=== PATIENT | female | born 1950 | race Caucasian/White ===

== ENCOUNTER 2018-05-31 06:43 | Day surgery (SDC) | payer OTHER, SELFPAY ==
[2018-05-23 07:43] VITALS: BMI 35.6
[2018-05-31] VITALS (11 sets, daily range): BP systolic 126–155; BP diastolic 61–86; PULSE 79–106; RESP 10–16; TEMP 36.4–36.8; O2SAT 93–98; BMI 34.4
--- NOTE | 2018-05-31 | PATH_ITS ---
[facility] Accession Number: [id number] . 01 Material submitted: . HERNIA SAC . 02 Diagnosis: Hernia Sac, Excision: Fibroadipose tissue with reactive changes, consistent with hernia sac. Negative for malignancy. MRV/06/02/2018 . 02 Electronically signed: . Bryan Alvarez MD, PhD, Pathologist NPI- [id number] . 01 Gross description: . Received in formalin, labeled hernia sac, is a piece of membranous and fatty tissue (9.0 x 7.0 x 2.5 cm). Sales Executive tissue is submitted in cassette A1. ([id number]) /MRV . 02 Pathologist provided ICD-10: K40.90 . 02 CPT . 931204 Performed at: 01 [facility] [address] [facility], [place], [place] [id number] MD Bruce Antonio MD Phone: [phone] Performed at: 02 [facility] [address] [place], [place] [id number] MD Hossein Villela MD Phone: [phone]
[2018-05-31] MEDS: LACTATED RINGERS 1,000 ML 42 ML IV ×2 (07:24→09:52)
--- NOTE | 2018-05-31 09:06 | PM.HP.1 ---
History of Present Illness Date Patient Seen: 05/31/18 Time Patient Seen: 09:07 Chief complaint: [id number] INCISIONAL HERNIA REPAIR Narrative: Yoanna is a rolan 67-year-old lady who is well known to me. She has a ventral hernia that is troubling her. She says it has become larger over the past several months. I saw her in December for consultation but she wanted to wait till the summer to have it repaired so that school is out and she would miss work. She is a full-time elementary school professional. Patient History Medical History Abnormal colonoscopy (Acute) Anxiety (Acute) Arthritis (Acute) Asthma (Acute) Basal cell carcinoma (BCC) (Acute) Cataracts, bilateral (Acute) Colon enlargement (Acute) Constipation (Acute) Cough (Acute) Dupuytren's contracture (Acute) Dupuytren's contracture of both hands (Acute) Easy bruisability (Acute) Eczema craquele (Acute) Edema (Acute) Floaters (Acute) GERD (gastroesophageal reflux disease) (Acute) Glaucoma (Acute) HTN (hypertension) (Acute) History of hysterectomy (Acute) Hypothyroidism (Acute) Lipoma of back (Acute) Osteopenia (Acute) Pain (Acute) Recurrent sinusitis (Acute) Shingles (Acute) Sleep apnea (Acute) Urinary incontinence (Acute) Vagal nerve sensitivity (Acute) Surgical History Hx of bilateral oophorectomy (Acute) Hx of laparoscopy (Acute) Hx of repair of right rotator cuff (Acute) Hx of rhinoplasty (Acute) Hx of tonsillectomy (Acute) Status post finger joint fusion (Acute) Family & Social History Family History: Reviewed 05/31/18 by Allyssa Arthur MD Social History: household members none Tobacco & Substance use: Smoking Status Never smoker alcohol intake current Substance Use Type does not use Meds Home Medications Medication Instructions Recorded Confirmed Type fluticasone-vilanterol [Breo 1 puff INH QAM #0 06/18/17 05/31/18 History Ellipta] albuterol sulfate 1.25 mg INHALATION PRN PRN 05/23/18 05/31/18 History amlodipine 5 mg PO QPM 05/23/18 05/31/18 History bupropion HCl 300 mg PO QAM 05/23/18 05/31/18 History cetirizine [Zyrtec] 10 mg PO QAM 05/23/18 05/31/18 History ciclesonide [Omnaris] 1 spray INTRANASAL DAILY 05/23/18 05/31/18 History dexlansoprazole [Dexilant] 30 mg PO QAM 05/23/18 05/31/18 History glycopyrrolate 1 mg PO QAM 05/23/18 05/31/18 History ketotifen fumarate [Zaditor] 1 drp EYE-BOTH PRN PRN 05/23/18 05/31/18 History levothyroxine 75 mcg PO QAM 05/23/18 05/31/18 History losartan 50 mg PO DAILY 05/23/18 05/31/18 History lutein-zeaxanthin 1 tab PO DAILY 05/23/18 05/31/18 History montelukast 10 mg PO QPM 05/23/18 05/31/18 History polyethylene glycol 3350 1 tsp PO QPM 05/23/18 05/31/18 History travoprost [Travatan Z] 1 drp EYE-BOTH QPM 05/23/18 05/31/18 History Allergies Allergy/AdvReac Type Severity Reaction Status Date / Time iodine [IODINE] Allergy Severe HIVES Verified 05/31/18 07:07 Penicillins [PENICILLINS] Allergy Severe FAINT Verified 05/31/18 07:07 levofloxacin [LEVOFLOXACIN] Allergy Intermediate Pains and Verified 05/31/18 07:07 nausea morphine [MORPHINE] Allergy Intermediate unknown Verified 05/31/18 07:07 Sulfa (Sulfonamide Allergy Unknown Topical=dutton, Verified 05/31/18 07:07 Antibiotics) Pill=nausea [SULFA (SULFONAMIDE ANTIBIOTICS)] Review of Systems Review of Systems All systems reviewed & are unremarkable except as noted in HPI and below Exam Vital Signs (past 8 hours): - 05/31/18 07:27 Temperature 97.8 F Pulse Rate 92 H Respiratory Rate 16 Blood Pressure 130/78 H Pulse Oximetry 98 Oxygen Delivery Method Room Air Narrative Exam Narrative: Very pleasant and rotund lady in no distress. HEENT: Normocephalic and atraumatic, pupils equal round reactive to light and accommodation with anicteric sclera Lungs: Clear bilaterally Heart: Regular rate and rhythm Abdomen: Soft, palpable bulge at the umbilicus, active bowel sounds. The bulge is quite large, I cannot palpate the actual defect. Extremities: Warm and well perfused Assessment & Plan Plan: Assessment/Plan Narrative: Very pleasant 67-year-old lady with multiple medical problems who also has a significant sized ventral hernia. We discussed the risks and benefits of hernia repair the patient expressed desire to have the procedure.
--- NOTE | 2018-05-31 09:09 | P.HP_ITS ---
History of Present Illness Date Patient Seen: 05/31/18 Time Patient Seen: 09:07 Chief complaint: [id number] INCISIONAL HERNIA REPAIR Narrative: Yoanna is a rolan 67-year-old lady who is well known to me. She has a ventral hernia that is troubling her. She says it has become larger over the past several months. I saw her in December for consultation but she wanted to wait till the summer to have it repaired so that school is out and she would miss work. She is a full-time ged teacher. Patient History Medical History Abnormal colonoscopy (Acute) Anxiety (Acute) Arthritis (Acute) Asthma (Acute) Basal cell carcinoma (BCC) (Acute) Cataracts, bilateral (Acute) Colon enlargement (Acute) Constipation (Acute) Cough (Acute) Dupuytren's contracture (Acute) Dupuytren's contracture of both hands (Acute) Easy bruisability (Acute) Eczema craquele (Acute) Edema (Acute) Floaters (Acute) GERD (gastroesophageal reflux disease) (Acute) Glaucoma (Acute) HTN (hypertension) (Acute) History of hysterectomy (Acute) Hypothyroidism (Acute) Lipoma of back (Acute) Osteopenia (Acute) Pain (Acute) Recurrent sinusitis (Acute) Shingles (Acute) Sleep apnea (Acute) Urinary incontinence (Acute) Vagal nerve sensitivity (Acute) Surgical History Hx of bilateral oophorectomy (Acute) Hx of laparoscopy (Acute) Hx of repair of right rotator cuff (Acute) Hx of rhinoplasty (Acute) Hx of tonsillectomy (Acute) Status post finger joint fusion (Acute) Family & Social History Family History: Reviewed 05/31/18 by Allyssa Arthur MD Social History: household members none Tobacco & Substance use: Smoking Status Never smoker alcohol intake current Substance Use Type does not use Meds Home Medications Medication Instructions Recorded Confirmed Type fluticasone-vilanterol [Breo 1 puff INH QAM #0 06/18/17 05/31/18 History Ellipta] albuterol sulfate 1.25 mg INHALATION PRN PRN 05/23/18 05/31/18 History amlodipine 5 mg PO QPM 05/23/18 05/31/18 History bupropion HCl 300 mg PO QAM 05/23/18 05/31/18 History cetirizine [Zyrtec] 10 mg PO QAM 05/23/18 05/31/18 History ciclesonide [Omnaris] 1 spray INTRANASAL DAILY 05/23/18 05/31/18 History dexlansoprazole [Dexilant] 30 mg PO QAM 05/23/18 05/31/18 History glycopyrrolate 1 mg PO QAM 05/23/18 05/31/18 History ketotifen fumarate [Zaditor] 1 drp EYE-BOTH PRN PRN 05/23/18 05/31/18 History levothyroxine 75 mcg PO QAM 05/23/18 05/31/18 History losartan 50 mg PO DAILY 05/23/18 05/31/18 History lutein-zeaxanthin 1 tab PO DAILY 05/23/18 05/31/18 History montelukast 10 mg PO QPM 05/23/18 05/31/18 History polyethylene glycol 3350 1 tsp PO QPM 05/23/18 05/31/18 History travoprost [Travatan Z] 1 drp EYE-BOTH QPM 05/23/18 05/31/18 History Allergies Allergy/AdvReac Type Severity Reaction Status Date / Time iodine [IODINE] Allergy Severe HIVES Verified 05/31/18 07:07 Penicillins [PENICILLINS] Allergy Severe FAINT Verified 05/31/18 07:07 levofloxacin [LEVOFLOXACIN] Allergy Intermediate Pains and Verified 05/31/18 07: 07 nausea morphine [MORPHINE] Allergy Intermediate unknown Verified 05/31/18 07:07 Sulfa (Sulfonamide Allergy Unknown Topical=dutton, Verified 05/31/18 07:07 Antibiotics) Pill=nausea [SULFA (SULFONAMIDE ANTIBIOTICS)] Review of Systems Review of Systems All systems reviewed & are unremarkable except as noted in HPI and below Exam Vital Signs (past 8 hours): - 05/31/18 07:27 Temperature 97.8 F Pulse Rate 92 H Respiratory Rate 16 Blood Pressure 130/78 H Pulse Oximetry 98 Oxygen Delivery Method Room Air Narrative Exam Narrative: Very pleasant and rotund lady in no distress. HEENT: Normocephalic and atraumatic, pupils equal round reactive to light and accommodation with anicteric sclera Lungs: Clear bilaterally Heart: Regular rate and rhythm Abdomen: Soft, palpable bulge at the umbilicus, active bowel sounds. The bulge is quite large, I cannot palpate the actual defect. Extremities: Warm and well perfused Assessment & Plan Plan: Assessment/Plan Narrative: Very pleasant 67-year-old lady with multiple medical problems who also has a significant sized ventral hernia. We discussed the risks and benefits of hernia repair the patient expressed desire to have the procedure.
[2018-05-31] MEDS: CEFAZOLIN 2 GM/100 ML FROZ.PIGGY IV (09:15)
--- NOTE | 2018-05-31 09:29 | SUR.OPER ---
Supine on padded OR bed, head on pillow, arms secured on padded arm boards at <90 degrees abduction, legs uncrossed, safety belt at thigh, tape over blanket over lower legs.
[2018-05-31] MEDS: LIDOCAINE 1% W/EPI INJ 20 ML INJ (09:39)
[2018-05-31] MEDS: BUPIVACAINE 0.5% (PF) 30 ML VIAL INJ (09:39)
[2018-05-31] MEDS: SODIUM CHLORIDE IRRIG SOLUTION 250 ML, CEFAZOLIN VIAL 1 GM IRR (09:44)
--- NOTE | 2018-05-31 10:05 | PM.OP.1 ---
Operative Date/Time/Diagnoses Date of procedure: 05/31/18 Time of procedure: 10:05 Procedure & Clinicians Procedure: Ventral hernia repair with ProLite mesh Same procedure as scheduled: Yes Indications: Enlarging and painful ventral hernia Click Yes if Unassisted: Yes Anesthesia Type: General ([place]) and Local Operative Notes Findings: Eight by 3 cm oblong defect containing bowel and omentum Closure Type: primary Specimen(s): other (Hernia sac to pathology in formalin) Implants & Drains: 2 in x 4 in ProLite mesh implant Estimated Blood Loss (mL): 5 Procedure in detail: After obtaining informed consent, the patient is taken to the operating room and placed in the supine position on the operating table. Following successful induction of general endotracheal anesthesia, appropriate padding of all bony prominences, and placement of appropriate monitors, the abdomen is prepped and draped in the standard surgical fashion. A time-out was held per [facility] protocol. Following infiltration with local anesthetic create a field block, an incision was created directly over the palpable defect and carried down through the skin subcutaneous tissue. The hernia sac was palpated and defined using a combination of blunt and sharp dissection. Once the hernia sac itself was defined, the edges of the fascia were cleared and the sac itself was removed. This revealed an 8 x 3 cm fascial defect that was all along and configuration. We elected to close it primarily and place an onlay patch to buttress the closure. This was done by placing interrupted 1-0 Prolene sutures in the defect. The defect was then irrigated and checked for hemostasis. The onlay patch of Prolene mesh was then placed on top of the sutures and the fascia. This was sewn into place by weaving it within the existing sutures and sewing the lateral edges down in the running fashion with an additional 0 Prolene suture. The wound was checked for hemostasis and irrigated with Ancef containing solution. The remainder of the abdominal wall was then closed with Vicryl and Monocryl suture. All sponge, needle, and instrument counts were correct at the conclusion of the case. Patient tolerated the procedure very well. She was allowed to wake from anesthesia and taken to the postanesthesia care unit in good condition. Complications: none Condition: stable Disposition: PACU Plan for aftercare: 1. Discharge to home 2. Wear abdominal binder at all times except when showering. 3. Strict 5 lb lifting restriction x3 months. 4. Follow up with me in 2 weeks
[2018-05-31] MEDS: fentaNYL 100 MCG/2 ML INJ 50 MCG IV (10:20)
[2018-05-31] MEDS: ONDANSETRON 4 MG/2 ML INJ IV (10:28)
--- NOTE | 2018-05-31 10:50 | SUR.PHASEI ---
PT TOLERATING SIPS OF JUICE AND EATING CRACKER.
[2018-05-31] MEDS: OXYCODONE/ACETAMINOPHEN 5/325 TABLET 1 TAB PO (11:01)
--- NOTE | 2018-05-31 11:05 | SUR.PHASEI ---
TOLERATING JUICE AND CRACKERS, USING INCENTIVE SPIROMETER AND PRACTICING COUGH AND DEEP BREATHING, DENIES ANY NAUSEA .
== END 2018-05-31 11:35 | disposition home or self-care (01) ==
PROVIDERS: PCP Family Medicine; Visit Provider Surgery
PROC: (CPT 49560; principal; 2018-05-31 07:45)
DX: K43.9 Ventral hernia without obstruction or gangrene (principal); F41.9 Anxiety disorder, unspecified; J45.909 Unspecified asthma, uncomplicated; I10 Essential (primary) hypertension; E03.9 Hypothyroidism, unspecified; G47.33 Obstructive sleep apnea (adult) (pediatric)
CPT/HCPCS: 49560; 49568; C1781; J0690; J1100; J2405; J2704; J3010

== ENCOUNTER 2018-07-12 14:00 | Day surgery (SDC) | payer OTHER, SELFPAY ==
--- NOTE | 2018-07-12 07:47 | PM.PREOP ---
Pre-operative Note Interval Note Pre-op Check: Yes History & Physical Reviewed by Physician Changes: No
[2018-07-12] MEDS: PROPARACAINE 0.5% OPHTH SOL 2 DROPS EYE-OP (14:50)
[2018-07-12] MEDS: CATARACT EYE COMPOUND (10 DROPS/SYRINGE) 3 DROPS EYE-OP (14:59)
[2018-07-12 15:03] VITALS: BP 135/89; PULSE 90; RESP 16; TEMP 36.6; O2SAT 96; BMI 34.2
[2018-07-12] MEDS: LACTATED RINGERS 1,000 ML 42 ML IV (16:14)
[2018-07-12] MEDS: CARBACHOL 1.5 ML VIAL INJ (16:46)
[2018-07-12] MEDS: BALANCED SALT IRRIG SOLN NO.2 15 ML IRRIG.SOLN IRR (16:46)
[2018-07-12] MEDS: CHONDROIDTIN/SOD HYALURONATE 1.05 ML SYRINGE INTRAOCULA (16:47)
[2018-07-12] MEDS: HYALURONATE SODIUM 10 MG/ML SYRINGE INJ (16:50)
[2018-07-12] MEDS: MOXIFLOXACIN OPHTH DROPS 3 ML BOTTLE 2 DROPS INJ (16:50)
[2018-07-12] MEDS: PHENYLEPHRINE/LIDOCAINE 3ML VIAL (OR) EYE-OP (16:51)
[2018-07-12] MEDS: TRIAMCINOLONE 50 MG/5 ML VIAL INJ (16:52)
[2018-07-12] MEDS: BALANCED SALT IRRIG SOLN NO.2 500 ML, EPINEPHrine 1 MG IRR (16:54)
[2018-07-12] MEDS: TETRACAINE 0.5% OPHTH DROPS 15 ML 2 DROPS EYE-RIGHT (17:01)
[2018-07-12 17:06] VITALS: BP 148/82; PULSE 94; RESP 20; TEMP 36.8; O2SAT 95
[2018-07-12 17:11] VITALS: BP 148/84; PULSE 94; RESP 15; O2SAT 97
[2018-07-12] MEDS: OFLOXACIN 0.3% OPHTH 5 ML 2 DROPS EYE-RIGHT (17:13)
[2018-07-12] MEDS: NEOMYCIN/POLY/DEX OPHTH OINT 1 APPLIC EYE-RIGHT (17:14)
--- NOTE | 2018-07-12 17:15 | P.OP_ITS ---
Operative Date/Time/Diagnoses Date of procedure: 07/12/18 Time of procedure: 15:10 Procedure & Clinicians Procedure: Date of service: July 12, 2000 Preoperative diagnoses: 1. Right nuclear sclerotic and posterior subcapsular possible posterior polar 2. Sleep apnea 3.Anxiety Postoperative diagnoses: 1. Cataract removed with phacoemulsification and posterior chamber intraocular lens. Procedure: Phacoemulsification with posterior chamber intraocular lens implant Surgeon: Bettie Bonner MD Complications: None Specimen: None Implant: ZCBOO+14.5 Blood loss: None Anesthesia: Retrobulbar with monitored standby Anesthesiologist: Kody Dick M.D. Description of procedure: Patient is a female year old with decreased vision due to cataract which is affecting activities of daily living. She wants surgery to improve vision. She has a long axial length and anxiety. General anesthesia is chosen for safety She was taken to the operating room and given IV sedation. A laryngeal mask airway was placed. Topical tetracaine drops were placed. She was prepped using Betadine solution, and draped in the usual sterile fashion. Temporal approach was made, a 1 mm side-port incision was made at the 7:30 position. Phenylephrine 1.5% mixed with 1% xylocaine 0.2 cc was placed into the anterior chamber. Viscoat followed by Tl was then placed. A 2.6 mm clear incision with a 2.6 mm blade was placed at the 170 degree meridian. A 360 degree capsulorrhexis style capsulotomy was then performed with a cystitome needle on a Healon. Hydrodelineation and hydrodissection were performed. The phacoemulsification unit is introduced, and sculpting notice used to groove the central lens. It is then removed in chopping mode. Epi nucleus is removed with epinuclear mode and irrigation aspiration was used to remove the peripheral cortex. The posterior capsule is peripherally polished. Possible posterior polar plaque was not removed. The intraocular lens is selected, inspected, power confirmed with a myopic target, and placed in the posterior chamber. The pupil was constricted. The wound was stromally hydrated and tested for leaks, there was none and left sutureless. Vigamox 0.1 cc was placed into the anterior chamber. Kenalog 0.2 cc was placed in the superior subconjunctival space. A drop of antibiotic and was placed and the eye was patched and shielded. The patient was stable and returned to the recovery room in excellent condition. Dictated by: Bettie Bonner MD Copy to: [facility] Same procedure as scheduled: Yes
[2018-07-12 17:30] VITALS: BP 169/81; PULSE 78; RESP 18; TEMP 36.4; O2SAT 95
== END 2018-07-12 17:45 | disposition home or self-care (01) ==
LOC: OR 14:02
PROVIDERS: PCP Family Medicine; Visit Provider Ophthalmology
DX: H25.11 Age-related nuclear cataract, right eye (principal); F41.9 Anxiety disorder, unspecified; J45.909 Unspecified asthma, uncomplicated; I10 Essential (primary) hypertension; G47.33 Obstructive sleep apnea (adult) (pediatric)
CPT/HCPCS: J0171; J1100; J2405; J2704; J3010; J3301

== ENCOUNTER 2018-07-19 09:18 | Day surgery (SDC) | payer OTHER, SELFPAY ==
--- NOTE | 2018-07-19 07:52 | PM.PREOP ---
Pre-operative Note Interval Note Pre-op Check: Yes History & Physical Reviewed by Physician Changes: Yes
[2018-07-19] MEDS: PROPARACAINE 0.5% OPHTH SOL 2 DROPS EYE-OP (10:30)
[2018-07-19 10:38] VITALS: BP 132/78; PULSE 79; RESP 16; TEMP 36.8; O2SAT 99; BMI 34.3
[2018-07-19] MEDS: CATARACT EYE COMPOUND (10 DROPS/SYRINGE) 3 DROPS EYE-OP (10:52)
[2018-07-19] MEDS: LACTATED RINGERS 1,000 ML 42 ML IV (11:18)
[2018-07-19] MEDS: CARBACHOL 1.5 ML VIAL INJ (11:56)
[2018-07-19] MEDS: BALANCED SALT IRRIG SOLN NO.2 15 ML IRRIG.SOLN IRR (11:56)
[2018-07-19] MEDS: CHONDROIDTIN/SOD HYALURONATE 1.05 ML SYRINGE INTRAOCULA (11:56)
[2018-07-19] MEDS: MOXIFLOXACIN OPHTH DROPS 3 ML BOTTLE 2 DROPS INJ (11:57)
[2018-07-19] MEDS: NEOMYCIN/POLY/DEX OPHTH OINT 1 APPLIC EYE-LEFT (11:57)
[2018-07-19] MEDS: HYALURONATE SODIUM 10 MG/ML SYRINGE INJ (11:57)
[2018-07-19] MEDS: PHENYLEPHRINE/LIDOCAINE VIAL (OR) 0.2 ML EYE-OP (11:58)
[2018-07-19] MEDS: TETRACAINE 0.5% OPHTH DROPS 15 ML 2 DROPS EYE-LEFT (11:58)
[2018-07-19] MEDS: TRIAMCINOLONE 50 MG/5 ML VIAL INJ (11:58)
[2018-07-19] MEDS: BALANCED SALT IRRIG SOLN NO.2 500 ML, EPINEPHrine 1 MG IRR (11:59)
[2018-07-19] MEDS: OFLOXACIN 0.3% OPHTH 5 ML 2 DROPS EYE-LEFT (12:02)
[2018-07-19] MEDS: TRYPAN BLUE 0.5 ML SYRINGE INJ (12:15)
[2018-07-19 12:27] VITALS: BP 123/71; PULSE 86; RESP 20; TEMP 36.1; O2SAT 93
[2018-07-19 12:30] VITALS: BP 120/74; PULSE 89; RESP 19; TEMP 36.1; O2SAT 99
[2018-07-19 12:35] VITALS: BP 127/86; PULSE 89; RESP 22; TEMP 36.2; O2SAT 99
[2018-07-19 12:40] VITALS: BP 117/70; PULSE 79; RESP 16; TEMP 36.1; O2SAT 99
[2018-07-19 13:00] VITALS: BP 115/68; PULSE 71; RESP 16; TEMP 36.2; O2SAT 98
--- NOTE | 2018-07-19 14:12 | PM.OP.1 ---
Operative Date/Time/Diagnoses Date of procedure: 07/19/18 Time of procedure: 11:12 Procedure & Clinicians Procedure: Date of service: July 19, 2018 Preoperative diagnoses: 1. Nuclear sclerotic with posterior subcapsular changes, advanced Cataract. Need for capsular dye. 2. Iris transillumination with glaucoma. 3. Long axial length 4. Anxiety 5. Restless leg syndrome. Postoperative diagnoses: 1. Cataract complex removed with posterior capsular dye general anesthesia and posterior chamber intraocular lens. Procedure: Phacoemulsification with posterior chamber intraocular lens implant Surgeon: Bettie Bonner MD Complications:None. Specimen: None Implant: ZCBOO +16.0 Blood loss: None Anesthesia: General with topical and intracameral anesthesia.Anesthesiologist: Kody Hurt M.D. Description of procedure: Patient is a 67 year old female with decreased vision due to cataract which is affecting activities of daily living. She wants surgery to improve vision. 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 She has significant nuclear sclerotic cataract and poor red reflex requiring capsular dye for increased safety. She has anxiety and elects a general over topical anesthesia. She also has restless leg type syndrome. She was taken to the operating room and given IV sedation. A laryngeal mask airway is placed. The eye is manually massaged for 30 sec, prepped using Betadine solution, and draped in the usual sterile fashion. Temporal approach was made, a 1 mm side-port incision was made at the 12 oclock meridian. Phenylephrine 1.5% mixed with 1% xylocaine 0.2 cc was placed into the anterior chamber. An air bubble is placed and then the Visudyne capsular dye is placed over the anterior capsule to improve visibility due to poor red reflex. Viscoat followed by Tl was then placed. A 2.6 mm clear incision with a 2.6 mm blade was placed at the 3 oclock meridian. A 360 degree capsulorrhexis style capsulotomy was then performed with a cystitome needle on a Healon. Hydrodelineation and hydrodissection were performed. The phacoemulsification unit is introduced, and sculpting notice used to groove the central lens. It is then removed in chopping mode. Epi nucleus is removed with epinuclear mode and irrigation aspiration was used to remove the peripheral cortex. The posterior capsule is polished. The intraocular lens is selected, inspected, power confirmed, and placed in the posterior chamber. The pupil was constricted. The wound was stromally hydrated and tested for leaks, there was none and was left sutureless. Vigamox 0.1 cc was placed into the anterior chamber. Kenalog 0.2 cc was placed in the superior subconjunctival space. A drop of antibiotic and was placed and the eye was patched and shielded. The patient was stable and returned to the recovery room in excellent condition. Dictated by: Bettie Bonner MD Copy to: [facility]
== END 2018-07-19 13:10 | disposition home or self-care (01) ==
LOC: OR 09:20
PROVIDERS: PCP Family Medicine; Visit Provider Ophthalmology
DX: H25.12 Age-related nuclear cataract, left eye (principal); F41.9 Anxiety disorder, unspecified; J45.909 Unspecified asthma, uncomplicated; I10 Essential (primary) hypertension; H40.89 Other specified glaucoma
CPT/HCPCS: J0171; J1100; J2405; J2704; J3010; J3301

== ENCOUNTER 2018-09-20 06:42 | Day surgery (SDC) | payer OTHER, SELFPAY ==
[2018-09-13 14:45] VITALS: BMI 35.6
--- NOTE | 2018-09-20 | PATH_ITS ---
[facility] Accession Number: [id number] . 01 Material submitted: . PART A: SUPRACLAVICULAR PART B: NECK LIPOMA . 01 Clinical history: . A-B: LIPOMA . 02 Diagnosis: A. Tissue From Supraclavicular Area: Lipoma, negative for atypia. . B. Specimen Designated Lipoma From Neck: Lipoma, negative for atypia. MRV/09/22/2018 . 02 Electronically signed: . Yoel Mcdonough MD, Pathologist NPI- [id number] . 01 Gross description: . (A) Received in formalin, labeled supraclavicular lipoma, is a piece of bright yellow rubbery adipose tissue (4.7 x 2.7 x 1.0 cm) with a homogenous unremarkable cut surface. The tissue is inked black. Newspaper Managing Editor tissue is submitted in cassettes A1 and A2. (B) Received in formalin, labeled neck lipoma, are multiple pieces of montgomery-yellow rubbery adipose tissue (9.5 x 6.5 x 3.4 cm in aggregate) with homogenous unremarkable cut surfaces. The tissue is inked black. Newspaper Managing Editor tissue is submitted in cassettes B1-B3. ([id number]) /[facility] . 02 Pathologist provided ICD-10: D17.0 . 02 CPT . 446525, 030632 Specimen Comment: A duplicate report has been generated due to demographic updates. Performed at: 01 [facility] [address] [id number] MD Brcue Antonio MD Phone: [phone] Performed at: 02 [facility] [address] [place], [place] [id number] MD Hossein Villela MD Phone: [phone]
[2018-09-20] MEDS: LACTATED RINGERS 1,000 ML 42 ML IV (07:20)
[2018-09-20 07:21] VITALS: BP 131/82; PULSE 87; RESP 16; TEMP 36.8; O2SAT 96; BMI 35.6
[2018-09-20] MEDS: CLINDAMYCIN 900 MG/50 ML PIGGYBACK 50 MG IV (08:43)
--- NOTE | 2018-09-20 08:51 | P.HP_ITS ---
History of Present Illness Date Patient Seen: 09/20/18 Time Patient Seen: 08:48 Chief complaint: [id number] EXCISION OF RECURRENT & NEW LIPOMAS Narrative: Yoanna is a wonderful 67-year-old lady who is well known to me. She is here today to have 2 lipomas removed. One is in the right supraclavicular region and the other is a recurrent lipoma across her left shoulder and posterior neck. Her health is otherwise not changed since I last saw her. Patient History Medical History Abnormal colonoscopy (Acute) Anxiety (Acute) Arthritis (Acute) Asthma (Acute) Basal cell carcinoma (BCC) (Acute) Cataracts, bilateral (Acute) Colon enlargement (Acute) Constipation (Acute) Cough (Acute) Dupuytren's contracture (Acute) Dupuytren's contracture of both hands (Acute) Easy bruisability (Acute) Eczema craquele (Acute) Edema (Acute) Floaters (Acute) GERD (gastroesophageal reflux disease) (Acute) Glaucoma (Acute) HTN (hypertension) (Acute) History of bronchitis (Acute) History of hysterectomy (Acute) Hypothyroidism (Acute) Lipoma of back (Acute) Osteopenia (Acute) Pain (Acute) Recurrent sinusitis (Acute) Restless leg (Acute) Shingles (Acute) Sleep apnea (Acute) Urinary incontinence (Acute) Vagal nerve sensitivity (Acute) Surgical History Cataract extraction status of left eye (Acute) History of incisional hernia repair (Acute) Hx of bilateral oophorectomy (Acute) Hx of laparoscopy (Acute) Hx of repair of right rotator cuff (Acute) Hx of rhinoplasty (Acute) Hx of tonsillectomy (Acute) Status post finger joint fusion (Acute) Family & Social History Family History: Reviewed 09/20/18 by Allyssa Arthur MD Social History: household members none Tobacco & Substance use: Smoking Status Never smoker alcohol intake current Substance Use Type does not use Meds Home Medications Medication Instructions Recorded Confirmed Type fluticasone-vilanterol [Breo 1 puff INH QAM #0 06/18/17 09/20/18 History Ellipta] albuterol sulfate 1.25 mg INHALATION PRN PRN 05/23/18 09/13/18 History amlodipine 5 mg PO QPM 05/23/18 09/20/18 History bupropion HCl 300 mg PO QAM 05/23/18 09/20/18 History cetirizine [Zyrtec] 10 mg PO BID 05/23/18 09/20/18 History ciclesonide [Omnaris] 1 spray INTRANASAL DAILY 05/23/18 09/20/18 History dexlansoprazole [Dexilant] 30 mg PO QAM 05/23/18 09/20/18 History glycopyrrolate 1 mg PO QAM 05/23/18 09/20/18 History ketotifen fumarate [Zaditor] 1 drp EYE-BOTH PRN PRN 05/23/18 09/13/18 History levothyroxine 75 mcg PO QAM 05/23/18 09/20/18 History losartan 50 mg PO DAILY 05/23/18 09/20/18 History lutein-zeaxanthin 1 tab PO DAILY 05/23/18 09/20/18 History montelukast 10 mg PO QPM 05/23/18 09/20/18 History polyethylene glycol 3350 1 tsp PO QPM 05/23/18 09/20/18 History travoprost [Travatan Z] 1 drp EYE-BOTH QPM 05/23/18 09/20/18 History Allergies Allergy/AdvReac Type Severity Reaction Status Date / Time iodine [IODINE] Allergy Severe HIVES Verified 09/13/18 14:52 Penicillins [PENICILLINS] Allergy Severe FAINT Verified 09/13/18 14:52 levofloxacin [LEVOFLOXACIN] Allergy Intermediate Pains and Verified 09/13/18 14: 52 nausea morphine [MORPHINE] Allergy Intermediate unknown Verified 09/13/18 14:52 Sulfa (Sulfonamide Allergy Unknown Topical=dutton, Verified 09/13/18 14:52 Antibiotics) Pill=nausea [SULFA (SULFONAMIDE ANTIBIOTICS)] Review of Systems Review of Systems All systems reviewed & are unremarkable except as noted in HPI and below Exam Vital Signs (past 8 hours): - 09/20/18 07:21 Temperature 98.3 F Pulse Rate 87 Respiratory Rate 16 Blood Pressure 131/82 Pulse Oximetry 96 Oxygen Delivery Method Room Air Narrative Exam Narrative: Healthy appearing lady in no distress HEENT: Normocephalic and atraumatic, pupils equal round reactive to light accommodation with anicteric sclerae Lungs: Clear auscultation bilaterally Heart: Regular rate and rhythm without murmur rub or gallop Chest: Soft 4 2 5 cm mobile mass in the right supraclavicular region. It is marked with a [place]. More elongated deeper mass over the left posterior neck and shoulder. There is a healed scar from her prior excision attempt. This 1 is somewhat deeper and more poorly defined. The area of palpation is about 20 cm in length but this may be distorted due to the thickness of the skin on the back. Abdomen: Soft, nontender, active bowel sounds Extremities: Warm well perfused Assessment & Plan Plan: Assessment/Plan Narrative: Ywtvi-wlvs-tala-old lady with a recurrent left posterior neck lipoma and a new right supraclavicular lipoma. We discussed the risks and benefits of excision of these lipomas the patient expressed a desire to have the procedure
--- NOTE | 2018-09-20 09:10 | SUR.OPER ---
Pt. slightly left and right lateral on alonzo bag (one for each lipoma), pillows, gel pads, gel donut used. secured with safety belt at hips and tape at lower legs.
[2018-09-20] MEDS: BUPIVACAINE 0.5% (PF) VIAL 30 ML INJ (09:27)
[2018-09-20] MEDS: LIDOCAINE 1% W/EPI INJ 20 ML INJ (09:28)
--- NOTE | 2018-09-20 09:53 | P.OP_ITS ---
Operative Date/Time/Diagnoses Date of procedure: 09/20/18 Time of procedure: 09:47 Pre-op diagnosis: Lipoma and recurrent lipoma Post-op diagnosis: same Procedure & Clinicians Procedure: Excision of right supraclavicular lipoma and re-excision of left posterior neck lipoma Same procedure as scheduled: Yes Indications: Recurrent lipoma causing significant neck and back discomfort Surgeon: Allyssa Arthur Anesthesia Type: General (Dr. Arora) Operative Notes Findings: 1. Discrete 5 cm lipoma in the right supraclavicular fossa 2. Multi lobulated lipoma with discrete areas laterally and more scarred in lobulated areas medially. The entire spans of lipoma is greater than 20 cm with a diameter of approximately 5 cm. It is removed in large and small sections. It is notably attached to the trapezius muscle. Closure Type: primary Specimen(s): other (Lipoma to pathology in formalin) Estimated Blood Loss (mL): 10 Procedure in detail: After obtaining informed consent, the patient brought to the operating room placed in the supine position on the operating table. Following successful induction of general endotracheal anesthesia, appropriate padding of all bony prominences, and placement of appropriate monitors, the right shoulder neck were prepped and draped in the standard surgical fashion. A time-out was held per RIOAP protocol. Following infiltration with local anesthetic to create a field block, an incision was created directly over the palpable lipoma in the supraclavicular fossa. This was carried down through the skin and subcutaneous to reveal a discrete lipomatous mass below. This was removed in a single piece and the vascular pedicle divided using cautery. The wound was checked for hemostasis, irrigated with saline, and closed in 2 layers. Exofen was applied to the skin. The patient was then turned on a alonzo bag to her right side being sure that all bony prominences were padded. There was an axillary roll beneath her right chest and pillows between her legs and around her entire body. A beanbag was used to hold her in place. The left posterior neck was then prepped and draped in the standard surgical fashion. Again, following infiltration with local anesthetic create a field block, an incision was recreated to include the pre- existing incision and extended somewhat laterally. Digital exploration revealed a discrete mass laterally but more lobulated and scarred individual masses medially. All of the individual pieces were carefully lifted and their vascular pedicles divided with cautery. Attempt was made to remove them in tact whenever possible. The wound was then irrigated with warm saline and closed in layers with Vicryl and Monocryl suture. All sponge, needle, and instrument counts were correct at the conclusion of the case. The patient was allowed to awake from anesthesia without difficulty and taken to the post anesthesia care unit in good condition. Complications: none Condition: stable Disposition: PACU Plan for aftercare: 1. Discharge to home 2. Follow up with me in 2 weeks
[2018-09-20 09:55] VITALS: BP 132/67; PULSE 91; RESP 20; TEMP 37.2; O2SAT 95
[2018-09-20 10:00] VITALS: BP 110/56; PULSE 79; RESP 16; O2SAT 95
[2018-09-20 10:05] VITALS: BP 119/63; PULSE 75; RESP 18; TEMP 37.2; O2SAT 95
[2018-09-20 10:17] VITALS: BP 115/65; PULSE 76; RESP 20; TEMP 37.3; O2SAT 95
--- NOTE | 2018-09-20 10:46 | SUR.PHASEII ---
1045: Pt discharged to [facility]. Julius Best will be here momentarily. All d/c instructions have been reviewed and Pt understands teaching. Volunteer aware that Yoanna has been discharged to the [facility]. Pt has met discharge criteria and left Phase II in stable condition.
== END 2018-09-20 10:45 | disposition home or self-care (01) ==
PROVIDERS: PCP Family Medicine; Visit Provider Surgery
PROC: (CPT 21933; principal; 2018-09-20 07:45)
DX: D17.0 Benign lipomatous neoplasm of skin and subcutaneous tissue of head, face and neck (principal); J45.909 Unspecified asthma, uncomplicated; F41.9 Anxiety disorder, unspecified; G47.33 Obstructive sleep apnea (adult) (pediatric)
CPT/HCPCS: 21933; 21552; J1100; J2250; J2405; J2704; J3010

== ENCOUNTER → 2019-06-01 13:01 | Outpatient (CLI) | payer OTHER, SELFPAY | PROVIDERS: PCP Family Medicine; Visit Provider Family Medicine | DX: M85.852 Other specified disorders of bone density and structure, left thigh (principal); Z78.0 Asymptomatic menopausal state; E07.9 Disorder of thyroid, unspecified; E89.41 Symptomatic postprocedural ovarian failure; Z90.722 Acquired absence of ovaries, bilateral | CPT/HCPCS: 77080 ==

== ENCOUNTER → 2019-06-22 09:15 | Outpatient (CLI) | payer OTHER, SELFPAY ==
--- NOTE | 2019-06-22 | DI.US.S_ITS ---
LIMITED ULTRASOUND OF RIGHT BREAST: 06/22/2019 CLINICAL: Palpable right breast lump. Comparison is made to exams dated: 06/22/2019 mammogram, 06/14/2016 mammogram - [facility], 07/15/2015 mammogram - [facility], 05/06/2013 mammogram - [facility], and 06/22/2019 ultrasound - [facility]. Color flow ultrasound of the right breast 1-2 o'clock region was performed. Engle scale images of the real-time examination were reviewed. Corresponding to the palpable abnormality is a benign 1.6 cm x 1 cm x 2.3 cm oval mass with a circumscribed margin in the right breast at 1:30 o'clock posterior depth 13 cm from the nipple. This oval mass is hyperechoic with a well-defined boundary and no posterior acoustic shadowing or enhancement. This was not seen on the prior mammogram. Color flow imaging demonstrates that there is no increase in vascularity. IMPRESSION: BENIGN There is no sonographic evidence of malignancy. Corresponding to the palpable abnormality in the superior medial right breast is a 2.3 cm benign lipoma. A 1 year screening mammogram is recommended. This exam was interpreted at Station ID: [id number]. Electronically Signed By: Parish Wade M.D. slc/:06/27/2019 11:19:59 letter sent: Normal Exam Ultrasound BI-RADS: 2 Benign
--- NOTE | 2019-06-22 | DI.MG.S_ITS ---
BILATERAL DIGITAL DIAGNOSTIC MAMMOGRAM 3D/2D: 06/22/2019 CLINICAL: Bilateral breast lump. Comparison is made to exams dated: 06/14/2016 mammogram - [facility], 07/15/2015 mammogram - [facility], and 05/06/2013 mammogram - [facility]. The tissue of both breasts is predominantly fatty. No significant masses, calcifications, or other findings are seen in either breast. No abnormality demonstrated in the region of palpable abnormalities in the far lateral left breast or superior medial right breast. IMPRESSION: INCOMPLETE: NEEDS ADDITIONAL IMAGING EVALUATION No significant masses, calcifications, or other findings are seen in either breast. No abnormality demonstrated in the region of palpable abnormalities in the far lateral left breast or superior medial right breast. Bilateral targeted US is recommended and will immediately follow. This exam was interpreted at Station ID: [id number]. NOTE: For mammograms, a report in lay terms will be sent to the patient. Approximately 15% of breast malignancies will not be visualized mammographically. In the management of a palpable breast mass, a negative mammogram must not discourage biopsy of a clinically suspicious lesion. Electronically Signed By: Parish Wade M.D. slc/:06/27/2019 11:13:33 ACR BI-RADS Category 0: Incomplete [id number]
--- NOTE | 2019-06-22 | DI.US.S_ITS ---
LIMITED ULTRASOUND OF LEFT BREAST: 06/22/2019 CLINICAL: Palpable left breast lump. Comparison is made to exams dated: 06/22/2019 mammogram and 06/14/2016 mammogram - [facility]. Color flow ultrasound of the left breast 9 o'clock region was performed. Engle scale images of the real-time examination were reviewed. There is a benign 1.4 cm x 2.1 cm x 0.7 cm oval lipoma with a circumscribed margin in the left breast at 9 o'clock posterior depth 13 cm from the nipple. This oval lipoma is hyperechoic with a well-defined boundary and no posterior acoustic shadowing or enhancement. This was not seen on the prior mammogram. Color flow imaging demonstrates that there is no increase in vascularity. IMPRESSION: BENIGN There is no sonographic evidence of malignancy. The palpable abnormality reported by patient corresponds to 1.4 cm x 2.1 cm x 0.7 cm oval mass in the left breast most likely is a lipoma and is benign. Recommend continued clinical survellance. A 1 year screening mammogram is recommended. This exam was interpreted at Station ID: [id number]. Electronically Signed By: Parish Wade M.D. slc/:06/22/2019 11:58:12 letter sent: Clinical Evaluation Ultrasound BI-RADS: 2 Benign
== END ==
PROVIDERS: PCP Family Medicine; Visit Provider Family Medicine
DX: R92.8 Other abnormal and inconclusive findings on diagnostic imaging of breast (principal); N63.12 Unspecified lump in the right breast, upper inner quadrant; D24.2 Benign neoplasm of left breast
CPT/HCPCS: 76642; 77066; G0279

== ENCOUNTER → 2022-09-24 10:26 | Outpatient (CLI) | payer MEDICARE, SELFPAY ==
--- NOTE | 2022-09-24 | DI.CT.S_ITS ---
PROCEDURE: CT PEL WO CON INDICATIONS: SACROILIAC JOINT DISORDER OF ARTICULAR CARTILAGE TECHNIQUE: Noncontrast 3 mm axial sections acquired through the bony pelvis, with coronal and sagittal reformatting. COMPARISON: None. FINDINGS: Image quality: Excellent. Bones: Osteoarthritic changes are seen in bilateral sacroiliac joints with joint space narrowing, subchondral sclerosis and subcortical radiolucencies concerning for moderate bilateral sacroiliitis . No definite cortical disruption to suggest bony erosion. No ankylosis is noted. Bilateral hip joint and symphysis pubis osteoarthritic changes are seen. No acute fracture or dislocation. No evidence of avascular necrosis of femoral heads. Degenerative disc disease in visualized lower lumbar spine is seen. Soft tissues: No gross presacral soft tissue abnormality is seen. No pelvic free fluid or free air. No abnormal bowel wall thickening. Bladder wall thickness is normal. No pelvic or inguinal lymphadenopathy. IMPRESSION: 1. Moderate bilateral sacroiliitis as described above. No definite bony erosion. No ankylosis. 2. Osteoarthritic changes throughout rest of the bony pelvis. No evidence of avascular necrosis of femoral head. Degenerative disc disease in lower lumbar spine. 3. No gross presacral soft tissue abnormalities. No pelvic free fluid or free air. Dictated by: Vamsi Crawford M.D. on 09/24/2022 at 11:27 Approved by: Vamsi Crawford M.D. on 09/24/2022 at 12:19
== END ==
PROVIDERS: PCP Family Medicine; Referring Provider Family Medicine; Visit Provider Family Medicine
DX: M51.36 Other intervertebral disc degeneration, lumbar region (principal); M46.1 Sacroiliitis, not elsewhere classified; M24.10 Other articular cartilage disorders, unspecified site
CPT/HCPCS: 72192

== ENCOUNTER → 2023-02-15 11:35 | Outpatient (CLI) | payer MEDICARE, SELFPAY ==
--- NOTE | 2023-02-15 | DI.MG.S_ITS ---
BILATERAL DIGITAL SCREENING MAMMOGRAM 3D/2D WITH CAD: 02/15/2023 CLINICAL: Routine screening. Family history of breast cancer. Comparison is made to exams dated: 06/22/2019 mammogram, 06/14/2016 mammogram - [facility], and 07/15/2015 mammogram - [facility]. There are scattered areas of fibroglandular density in both breasts (category b / 25%-50% glandular tissue). Current study was also evaluated with a Computer Aided Detection (CAD) system. There are benign calcifications in both breasts. No significant masses, calcifications, or other findings are seen in either breast. There has been no significant interval change. IMPRESSION: BENIGN There is no mammographic evidence of malignancy. A 1 year screening mammogram is recommended. Based on the Tyrer Cuzick model (a risk assessment model) the patient's lifetime risk is 2.8% and her 10 year risk is 2.5%. According to the ACR, ACS, and NCCN guidelines, an annual breast MRI exam along with mammogram is recommended if the patient's lifetime risk is 20% or greater. This exam was interpreted at Station ID: [id number]. NOTE: For mammograms, a report in lay terms will be sent to the patient. Approximately 15% of breast malignancies will not be visualized mammographically. In the management of a palpable breast mass, a negative mammogram must not discourage biopsy of a clinically suspicious lesion. Electronically Signed By: Parish hernandez/jayde:02/15/2023 13:17:09 letter sent: Normal Exam ACR BI-RADS Category 2: Benign Finding(s) 3342F
== END ==
PROVIDERS: PCP Family Medicine; Referring Provider Family Medicine; Visit Provider Family Medicine
DX: Z12.31 Encounter for screening mammogram for malignant neoplasm of breast (principal); Z80.3 Family history of malignant neoplasm of breast
CPT/HCPCS: 77063; 77067

== ENCOUNTER → 2023-03-17 13:21 | Outpatient (CLI) | payer MEDICARE, SELFPAY ==
--- NOTE | 2023-03-17 13:25 | DI.CT.S_ITS ---
PROCEDURE: CT PEL WO CON INDICATIONS: SI JOINT DYSFUNCTION TECHNIQUE: Noncontrast 3 mm axial sections acquired through the bony pelvis, with coronal and sagittal reformatting. COMPARISON: [facility], CT, CT PEL WO CON, 09/24/2022, 10:30. FINDINGS: Image quality: Excellent. Bones: Patient is status post interval surgical fusion of right sacroiliac joint with surgical hardware in place. No evidence of hardware loosening or failure. No acute pelvic fracture or dislocation. There is suggestion of partial bony union in right sacroiliac joint adjacent to the surgical hardware. Osteoarthritic changes are again seen in bilateral sacroiliac joints with joint space narrowing, subchondral sclerosis and subcortical cystic changes. No ankylosis is noted in left sacroiliac joint. No suspicious bony lesions. No evidence of avascular necrosis of femoral head. Soft tissues: There is no gross pelvic and hip muscle abnormality. No intramuscular hematoma or fluid collection. No abnormal soft tissue calcifications. No pelvic free fluid or free air is seen. Bowel wall thickness is normal. Bladder wall thickness is normal. No pelvic lymphadenopathy is seen. IMPRESSION: 1. Patient is status post interval surgical fusion of right sacroiliac joint. No evidence of hardware loosening or failure. 2. There is partial ankylosis of right sacroiliac joint at the level of surgical hardware. Osteoarthritic changes are seen in rest of the right sacroiliac joint. 3. Osteoarthritic changes noted in left sacroiliac joint. No evidence of ankylosis is seen. No pelvic fracture or dislocation. No suspicious bony lesions. 4. No gross pelvic soft tissue abnormalities. Dictated by: Vamsi Crawford M.D. on 03/17/2023 at 16:53 Approved by: Vamsi Crawford M.D. on 03/17/2023 at 16:57
== END ==
PROVIDERS: PCP Family Medicine; Referring Provider Neurological Surgery; Visit Provider Neurological Surgery
DX: M53.88 Other specified dorsopathies, sacral and sacrococcygeal region (principal); Z98.1 Arthrodesis status
CPT/HCPCS: 72192

== ENCOUNTER → 2023-11-12 11:05 | Outpatient (CLI) | payer MEDICARE, SELFPAY | PROVIDERS: PCP Family Medicine; Referring Provider Orthopaedic Surgery; Visit Provider Orthopaedic Surgery | DX: Z01.818 Encounter for other preprocedural examination (principal) | CPT/HCPCS: 93005 ==

== ENCOUNTER → 2023-11-12 11:40 | Outpatient (CLI) | payer MEDICARE, SELFPAY ==
--- NOTE | 2023-11-12 | DI.CT.S_ITS ---
PROCEDURE: CT LUMBAR SPINE WO CON INDICATIONS: Spondylolysis, lumbar region TECHNIQUE: Noncontrast 3 mm thick sections acquired from the T12 level to the sacrum. Sagittal and coronal reformats were constructed. For radiation dose reduction, the following was used: automated exposure control. COMPARISON: None. FINDINGS: Image quality: Excellent. Bones: Grade 1 anterolisthesis of L4 on L5 and L5 on S1 secondary to facet arthrosis. Significant facet arthrosis and facet hypertrophy at L4-5 and L5-S1. Moderate, multilevel degenerative disc disease; please see same day lumbar MRI for further discussion regarding specific disc herniation and spinal canal narrowing. Surgical fusion of the right sacroiliac joint. Soft tissues: No retroperitoneal masses or hematomas. Visualized aorta is normal in caliber. IMPRESSION: Grade 1 anterolisthesis of L4 on L5 and L5 on S1 secondary to facet arthrosis. Please see same day lumbar MRI for further discussion regarding specific disc herniation and spinal canal narrowing. Dictated by: Antonio Dillard M.D. on 11/12/2023 at 20:46 Approved by: Antonio Dillard M.D. on 11/12/2023 at 20:49
--- NOTE | 2023-11-12 | DI.MRI.S_ITS ---
PROCEDURE: MR LUMBAR SPINE WO CON INDICATIONS: Spondylolysis, lumbar region TECHNIQUE: Noncontrast sagittal T1 spin echo and T2 fast echo, sagittal STIR, and T2 fast spin echo through the lumbar spine. In cases with scoliosis, additional coronal T2 fast spin echo may be performed. COMPARISON: [facility], CT, CT PEL WO CON, 09/24/2022, 10:30. [facility], CT, CT LUMBAR SPINE WO CON, 11/12/2023, 12:04. FINDINGS: Image quality: Diagnostic Alignment and Curvature: Redemonstration of grade 1 anterolisthesis of L4 on L5 and L5 on S1. Minimal anterolisthesis of T11 on T12. Bone Marrow: Marrow is of normal overall signal. No acute vertebral body compression fractures. Susceptibility artifact from right sacroiliac joint fusion hardware. Stable T2 hyperintense, T1 hypointense focus within the right posterior L5 vertebral body. This is again noted immediately adjacent to a Schmorl's node involving the superior endplate of L5. Spinal Cord: Conus medullaris terminates at the L2 level. Visualized cord demonstrates normal signal and size. Paraspinous Soft Tissues: No paravertebral masses. T12-L1: Bilateral facet arthropathy. Minimal ligamentum flavum hypertrophy. Mild degenerative endplate changes. No significant neuroforaminal or spinal canal stenosis. L1-L2: Mild bilateral facet arthropathy. Ligamentum flavum hypertrophy. No significant neuroforaminal or spinal canal stenosis. L2-L3: Mild bilateral facet arthropathy. Moderate ligamentum flavum hypertrophy. Small symmetric disc bulge. No spinal canal stenosis. Mild bilateral neuroforaminal stenosis. L3-L4: Minimal loss of disc signal intensity. Bilateral facet arthropathy. Ligamentum flavum hypertrophy and mild epidural lipomatosis. Moderate symmetric disc bulge. Findings result in mild spinal canal stenosis with mild-moderate bilateral neuroforaminal stenosis. L4-L5: Grade 1 anterolisthesis of L4 on L5 measuring approximately 5 mm. Degenerative endplate changes. Minimal loss of disc signal intensity. Moderate-severe bilateral facet arthropathy. Moderate ligamentum flavum hypertrophy. Uncovering of the posterior L4-5 disc secondary to anterolisthesis. Combination of findings result in moderate spinal canal stenosis and moderate bilateral neuroforaminal stenosis. L5-S1: Degenerative endplate changes in disc space loss. Grade 1 anterolisthesis of L5 on S1 measuring approximately 5 mm. Minimal loss of disc signal intensity. There is T2 hyperintensity involving the right posterior L5-S1 disc likely representing a annular fibrosus fissure. Slightly eccentric to the right disc bulge and uncovering of the disc. Findings result in moderate right and mild left bilateral neuroforaminal stenosis. No significant spinal canal stenosis. IMPRESSION: 1. Lumbar spine without acute abnormalities. 2. Multilevel, multifactorial lumbar spondylosis as detailed above by vertebral body level. Findings are most pronounced from L3-4 through L5-S1 with the most severe level noted at L4-5. 3. Right posterior L5-S1 disc annular fibrosus fissure. Dictated by: Larry Simental M.D. on 11/15/2023 at 9:11 Approved by: Larry Simental M.D. on 11/15/2023 at 9:28
== END ==
PROVIDERS: PCP Family Medicine; Referring Provider Neurological Surgery; Visit Provider Neurological Surgery
DX: M47.817 Spondylosis without myelopathy or radiculopathy, lumbosacral region (principal); M47.816 Spondylosis without myelopathy or radiculopathy, lumbar region; M43.16 Spondylolisthesis, lumbar region; M43.17 Spondylolisthesis, lumbosacral region; Z01.818 Encounter for other preprocedural examination
CPT/HCPCS: 72131; 72148; 93005; 93010

== ENCOUNTER 2024-01-24 08:18 | Day surgery (SDC) | payer MEDICARE, SELFPAY ==
[2024-01-20 09:08] VITALS: BMI 35.2
[2024-01-24] VITALS (8 sets, daily range): BP systolic 133–159; BP diastolic 74–96; PULSE 89–100; RESP 12–20; TEMP 36.2–37.2; O2SAT 93–98; BMI 35.2
--- NOTE | 2024-01-24 06:00 | DI.RAD.S_ITS ---
PROCEDURE: XR KNEE LT 1TO2V INDICATIONS: TKA TECHNIQUE: 2 view(s) of the knee acquired. COMPARISON: None. FINDINGS: Bones: Patient is status post knee joint arthroplasty. Hardware components are in expected positions. Visualized bony structures are intact. Soft tissues: Overlying postoperative changes are noted. IMPRESSION: Expected post-operative appearance of a knee arthroplasty. Approved by: Teto Ramirez M.D. on 01/24/2024 at 21:22
[2024-01-24] MEDS: CELECOXIB 200 MG CAPSULE PO (09:20)
[2024-01-24] MEDS: LACTATED RINGERS 1,000 ML 42 ML IV ×2 (09:23→11:50)
[2024-01-24] MEDS: VANCOMYCIN 1,000 MG/200 ML PIGGYBACK 200 MG IV (10:00)
--- NOTE | 2024-01-24 10:03 | SUR.PREOP ---
glasses given to friend, Arianna
--- NOTE | 2024-01-24 10:47 | PM.HP.1 ---
History of Present Illness History of Present Illness Date Patient Seen: 01/24/24 Time Patient Seen: 10:48 Chief complaint: TKA Left *OPB* 01/23 Narrative: Yoanna notes constant severe left knee pain. She had a left total knee arthroplasty scheduled and had a previous H and P done but had a severe incapacitating flare of her low back pain and spondylolisthesis. She has had an epidural cortisone injection with improved her overall back pain but she still notes incapacitating left knee pain. She has a history of a right total knee arthroplasty which is working reasonably well. [facility] Medical History Eczema History of bronchitis Restless leg Vagal nerve sensitivity Osteopenia Glaucoma Colon enlargement Eczema craquele Easy bruisability Cataracts, bilateral Anxiety Shingles Floaters Abnormal colonoscopy Lipoma of back Basal cell carcinoma (BCC) Dupuytren's contracture of both hands Dupuytren's contracture Recurrent sinusitis Urinary incontinence Hypothyroidism GERD (gastroesophageal reflux disease) Constipation Pain Arthritis Cough Sleep apnea Edema HTN (hypertension) Asthma Surgical History Status post epidural steroid injection (01/04/24) History of right cataract extraction Status post laparoscopic-assisted sigmoidectomy History of YAG laser iridotomy of both eyes History of lumbar fusion (11/2022) History of total right knee replacement (04/2021) History of incisional hernia repair Cataract extraction status of left eye Status post finger joint fusion Hx of repair of right rotator cuff Hx of rhinoplasty Hx of bilateral oophorectomy History of hysterectomy Hx of laparoscopy Hx of tonsillectomy Social History household members: none Smoking Status: Never smoker alcohol intake: current Meds Home Medications and Allergies Home Medications Medication Instructions Recorded Confirmed Type albuterol sulfate 1.25 mg/3 mL 1.25 mg inhalation PRN PRN SOB 05/23/18 12/12/23 History solution for nebulization bupropion HCl 300 mg 24 hr tablet, 300 mg PO QAM 05/23/18 01/24/24 History extended release dexlansoprazole 30 mg 60 mg PO QAM 05/23/18 01/24/24 History capsule,biphase delayed release (Dexilant) glycopyrrolate 1 mg tablet 1 mg PO QAM 05/23/18 12/12/23 History levothyroxine 75 mcg capsule 75 mcg PO BEDTIME 05/23/18 12/12/23 History losartan 50 mg tablet 50 mg PO DAILY 05/23/18 01/24/24 History lutein 25 mg-zeaxanthin 5 mg 1 tab PO DAILY 05/23/18 12/12/23 History capsule montelukast 10 mg tablet 10 mg PO QPM 05/23/18 01/24/24 History polyethylene glycol 3350 17 1 tsp PO QPM PRN Constipation 05/23/18 12/12/23 History gram/dose oral powder acetaminophen 500 mg tablet 1,000 mg PO BID-TID 12/12/23 01/24/24 History aspirin 500 mg tablet 500 mg PO TID 12/12/23 01/24/24 History doxycycline hyclate 50 mg capsule 50 mg PO DAILY Adult acne 12/12/23 01/24/24 History fluticasone furoate 27.5 1 spray intranasal DAILY 12/12/23 01/24/24 History mcg/actuation nasal spray,suspension (Flonase Sensimist) gabapentin 100 mg capsule 100 mg PO BID 12/12/23 12/12/23 History hydrochlorothiazide 12.5 mg tablet 12.5 mg PO QAM 12/12/23 01/24/24 History latanoprost 0.005 % eye drops 1 drp EYE-BOTH BEDTIME 12/12/23 01/24/24 History loratadine 10 mg tablet 10 mg PO QD-BID 12/12/23 12/12/23 History potassium chloride 10 mEq 10 meq PO DAILY 12/12/23 12/12/23 History capsule,extended release spironolactone 50 mg tablet 50 mg PO QAM Adult acne 12/12/23 01/24/24 History fluticasone furoate 100 1 ea inhalation DAILY 01/24/24 01/24/24 History mcg-vilanterol 25 mcg/dose inhalation powder (Breo Ellipta) Allergies Allergy/AdvReac Type Severity Reaction Status Date / Time iodine [IODINE] Allergy Severe HIVES Verified 01/24/24 09:09 morphine [MORPHINE] Allergy Intermediate Hives Verified 01/24/24 09:09 ibuprofen AdvReac Severe Nightmare Verified 01/24/24 09:09 Penicillins [PENICILLINS] AdvReac Severe FAINT Verified 01/24/24 09:09 levofloxacin [LEVOFLOXACIN] AdvReac Intermediate Pains and Verified 01/24/24 09:09 nausea Sulfa (Sulfonamide AdvReac Unknown Topical=dutton, Verified 01/24/24 09:09 Antibiotics) Pill=nausea [SULFA (SULFONAMIDE ANTIBIOTICS)] Review of Systems Review of Systems Narrative: She has been doing reasonably well no recent cardiac or pulmonary issues persistent but somewhat improved low back pain, history of an SI joint fusion, no new specific weakness or radicular symptoms Exam Vital Signs (past 8 hours): - 01/24/24 09:36 Temperature 98.7 F Pulse Rate 100 H Respiratory Rate 20 Blood Pressure 133/81 Pulse Oximetry 98 Oxygen Delivery Method Room Air Oxygen Delivery Method Room Air Narrative Exam Narrative: HEENT is benign, she is alert she is oriented, her lungs are clear, cor regular rate and rhythm, abdomen is soft obese but benign. Examination of her left lower extremity shows valgus deformity of her knee she is tender to palpation along the lateral joint line knee range motion 0-125, stable at 0 45 and 90?, acceptable tracking of the patella, calf soft distally, skin intact, neurologically okay Objective Labs Labs: Her x-rays show severe left knee osteoarthritis kl score 4 with evidence of bony deformity, right total knee arthroplasty acceptable alignment no evidence of loosening, lumbar spine MRI shows a L3-4 and L4-5 spondylolisthesis as well as prior left SI joint fusion Assessment & Plan Assessment and plan (1) Localized osteoarthritis of left knee: Status: Acute (2) Spondylolisthesis, lumbar region: Status: Acute Plan I have recommended a left total knee arthroplasty. The procedure alternatives risks benefits and complications were discussed in detail. She has previously undergone workup and had a previous history and physical. We have stabilized her low back in addition to the extent that it is reasonable to go ahead and proceed with a left total knee arthroplasty. Options risks benefits and complications discussed in detail.
[2024-01-24] MEDS: CEFAZOLIN 2 GM/100 ML PREMIX 100 ML IV ×2 (11:08→18:05)
--- NOTE | 2024-01-24 11:08 | SUR.PREOP ---
Block start time [1055] . Monitoring initiated and maintained throughout procedure. Oxygen and medications given per anesthesiologist Patient remained stable throughout procedure, no adverse reactions noted. Block end time [1100.
[2024-01-24] MEDS: BUPIVACAINE LIPOSOME 266 MG/20 ML VIAL INJ (11:48)
[2024-01-24] MEDS: TRANEXAMIC ACID 1,000 MG VIAL 1000 MG INJ ×2 (11:48→13:34)
[2024-01-24] MEDS: BUPIVACAINE 0.25% (PF) 60 ML, EPINEPHrine 0.3 MG INJ (11:49)
--- NOTE | 2024-01-24 11:53 | SUR.OPER ---
Supine on padded OR bed. Pillow under head, arms secured on padded armboards <90 degree abduction. Safety belt across torso. Non-operative leg secured with tape over blanket over lower leg. Operative leg secured in [employer] BOOT. Foam padded brace at thigh of operative leg.
[2024-01-24] MEDS: hydrOXYzine 50 MG/ML INJ 25 MG IM (14:19)
[2024-01-24] MEDS: ONDANSETRON 4 MG/2 ML INJ IV (14:19)
[2024-01-24] MEDS: OXYCODONE IR 5 MG TABLET PO (14:20)
--- NOTE | 2024-01-24 14:32 | PM.OP.1 ---
Operative Date/Time/Diagnoses Date of procedure: 01/24/24 Time of procedure: 11:25 Pre-op diagnosis: Severe left knee OA Post-op diagnosis: same Procedure & Clinicians Procedure: Left total knee arthroplasty with Cori guidance Same procedure as scheduled: Yes Indications: The patient has had progressively worsening left knee pain with radiographic changes consistent with arthritis. Non-operative management has failed and the patient has requested total knee replacement. The risks, benefits and alternatives to surgery were discussed with the patient prior to proceeding. Risks discussed included, but were not limited to, failure to relieve pain, stiffness, infection, nerve damage, deep venous thrombosis, pulmonary embolism, stroke, coma, heart attack, permanent paralysis and , as well as the potential need for eventual revision of the prosthetic. Surgeon: Elizabeth King Demand Equipment Repairer: Reed Boyd Anesthesia Type: General and Peripheral nerve block Operative Notes Findings: Severe left knee OA, adequate bone, adequate stability Closure Type: primary Specimen(s): none sent Prosthetic devices, grafts, tissues, transplants, or devices: King and nephew desmondney BCS 2 size 5 femur, size 3 tibia, +11 poly, 35 x 7-1/2 mm patella Estimated Blood Loss (mL): 250 Tourniquet time (min): 105 Procedure in detail: The patient was seen in the pre-operative area, where the patient identified the left knee as the operative site and this was marked with my initials. The patient received pre-operative antibiotics, and was taken to the operating room and placed on the operative table in the supine position. After satisfactory anesthesia, a medical records director out was performed. The left leg was encircled with a tourniquet about the proximal thigh, and the leg was prepared from the toes to the tourniquet with ChloroPrep in the usual fashion and draped through sterile drapes. The leg was elevated and exsanguinated with Eschmark bandage and the tourniquet inflated to 285 mmHg pressure. We did have some issues with the tourniquet and put it up and down a couple of times and switch to a different tourniquet box. A PA was used during the procedure and was essential for intraoperative retraction and safe implantation of the components. The knee was approached through an approximately 18 cm incision centered over the patella and carried into the knee through a medial parapatellar arthrotomy. Portion of the medial and lateral meniscus was resected. Soft tissue was carefully mobilized around the patella the patella was measured with a caliper. Bone was resected from the patella and the patellar height was reconstituted with up an appropriate sized patellar component. A cover was then placed on the patella. A small amount of additional medial and lateral meniscus was resected. The knee was carefully exposed and osteophytes were removed in the PCL was released. Two pins were placed in the femur and the tibial guide with a guide for CORI navigation was placed. We then carefully mapped the femur and the tibia and did range of motion both stressed and unstressed. The distal femoral cut was made using robotic navigation. Finishing cuts were made on the femur and it was checked with navigation. There was no evidence of notching. The anterior, posterior and chamfer cuts were then made. The posterior osteophytes and soft tissues were then removed. The posterior capsule was injected with part of a mixture of 60 ml 0.25% Marcaine mixed with 20 ml Exparel for post operative pain control. The remainder of this mixture was injected into the capsule and subcutaneous tissues during cement curing. The tibia was prepared using navigation for the tibial cut. The guide was just a little off. We did work to adjusted correcting slope varus valgus and depth. A cut was made through the guide and it looked like we had a couple of degrees of extra slope. The rotation was assessed. The patient was placed in extension residual medial and lateral meniscus as well as any residual bone was carefully resected. [No] additional tibia was resected. Hemostasis was achieved especially posteriorly. Additional local was injected into the posterior capsule. The femoral component was trial was placed and the notch was finished. Trial tibial and femoral components were then placed and the knee placed through a range of motion. Range of motion was [0-130], with good stability throughout the range. The trials were then removed, and the tibia was finished. I carefully checked the tibia and there was adequate bone for tibial alignment. It was then carefully aligned and punched and drilled. The bone was prepared with pulsatile lavage, and dried with a sponge. Cement was applied and the final prosthetics placed. Excess cement was removed during and after cement curing. After confirming there was no extruded cement posteriorly, the final tibial insert was placed. The knee was copiously irrigated and the tourniquet deflated. Hemostasis was obtained with the Bovie cautery. The capsule was closed with interrupted Vicryl suture. The subcutaneous layer was closed with barbed sutures, and the skin with a running 3-0 V-Lock suture and Surgical glue. We added a few tony. A gagan dressing was applied and the patient was taken to recovery having tolerated the procedure well. Complications: none Post-operative Condition: stable Disposition: Acute Care Plan for aftercare: The patient will be maintained on a standard total knee replacement protocol with weight bearing as tolerated. The patient will receive aspirin and sequential compression devices for DVT prophylaxis. The patient will be discharged home when safe for the home environment.
[2024-01-24] MEDS: LACTATED RINGERS 1,000 ML 100 ML IV (15:47)
[2024-01-24] MEDS: HYDROMORPHONE 2 MG TABLET PO ×2 (16:38→20:37)
[2024-01-24] MEDS: ACETAMINOPHEN 325 MG TABLET 650 MG PO (16:39)
[2024-01-24] MEDS: diphenhydrAMINE 25 MG TABLET PO (18:05)
--- NOTE | 2024-01-24 19:36 | RT ---
pt states she took her meds this morning and doesn't need them this evening
[2024-01-24] MEDS: MONTELUKAST 10 MG TABLET PO (20:37)
[2024-01-24] MEDS: ASPIRIN EC 81 MG TABLET PO (20:37)
[2024-01-24] MEDS: DOCUSATE 100 MG CAPSULE PO (20:37)
[2024-01-24] MEDS: GABAPENTIN 100 MG CAPSULE PO (20:37)
[2024-01-25] MEDS: HYDROMORPHONE 2 MG TABLET PO ×3 (00:48→08:58)
[2024-01-25] MEDS: diphenhydrAMINE 25 MG TABLET PO (02:21)
[2024-01-25] MEDS: ACETAMINOPHEN 325 MG TABLET 650 MG PO (02:21)
[2024-01-25] MEDS: CEFAZOLIN 2 GM/100 ML PREMIX 100 ML IV (02:28)
[2024-01-25 04:44] LABS: Hematocrit 34.8 % (36-46); Hemoglobin 12.2 g/dL (12.0-16.0)
[2024-01-25] MEDS: LEVOTHYROXINE 75 MCG TABLET PO (06:28)
--- NOTE | 2024-01-25 08:07 | PM.DS.1 ---
History of Present Illness History of Present Illness Date Patient Seen: 01/25/24 Time Patient Seen: 07:45 Chief complaint: TKA Left *OPB* 01/23 Narrative: Procedure: Left total knee arthroplasty with Cori guidance Same procedure as scheduled: Yes Indications: The patient has had progressively worsening left knee pain with radiographic changes consistent with arthritis. Non-operative management has failed and the patient has requested total knee replacement. The risks, benefits and alternatives to surgery were discussed with the patient prior to proceeding. Risks discussed included, but were not limited to, failure to relieve pain, stiffness, infection, nerve damage, deep venous thrombosis, pulmonary embolism, stroke, coma, heart attack, permanent paralysis and , as well as the potential need for eventual revision of the prosthetic. Surgeon: Elizabeth King Outreach Counselor: Reed Boyd Anesthesia Type: General and Peripheral nerve block Operative Notes Findings: Severe left knee OA, adequate bone, adequate stability Closure Type: primary Specimen(s): none sent Prosthetic devices, grafts, tissues, transplants, or devices: [facility] B[facility] 2 size 5 femur, size 3 tibia, +11 poly, 35 x 7-1/2 mm patella Estimated Blood Loss (mL): 250 Tourniquet time (min): 105 Patient found lying comfortably in bed. Denies any nausea vomiting fever or chills. Denies any numbness or tingling in the left lower extremity. Pain is controlled with oral Dilaudid. Discharge Providers Provider Date of admission: 01/24/2024 Discharge Date: 01/25/24 Primary care physician: Prashanth Marcos MD Consults: 01/24/24 06:00 Consult to Anesthesiology Routine Comment: Consulting Provider: Anesthesiologist Reason for consultation: Regional block for post operative pain control 01/24/24 14:48 Consult to Discharge Planning Routine Comment: Consult to Occupational Therapy Evaluate & Treat Comment: Physician Instructions: Evaluate and treat Consult to Physical Therapy Evaluate & Treat Comment: Physician Instructions: postop TKA protocol Discharge provider: Reed Boyd PA-C Summary Hospital Course Discharge Diagnosis: Status post left knee total arthroplasty. Hospital Course: Multimodal pain management. Physical therapy. Status at Discharge Cognitive/behavioral status at discharge: oriented Functional status at discharge: uses cane/walker Overall status at discharge: patient is back to baseline Time Spent with Patient Time spent: Less than 30 minutes Exam Vital Signs (past 8 hours): Oxygen Delivery Method Room Air Oxygen Flow Rate 0 Narrative Exam Narrative: JULIANNE dressing is intact. Minor amount of blood seepage into the bandage. No increased pain with compression of the posterior thigh or calf on the left side. Able to flex knee with pain. Able to dorsiflex and plantar flex against resistance at the left ankle. Sensation is grossly intact of the left lower extremity. Const General: cooperative and comfortable Chest Chest: normal inspection of the chest and normal palpation of entire chest wall Objective Labs 01/25/24 04:30 Labs: Laboratory Results - last 24 hr 01/25/24 04:30 Hgb 12.2 Hct 34.8 L PFSH Medical History Eczema History of bronchitis Restless leg Vagal nerve sensitivity Osteopenia Glaucoma Colon enlargement Eczema craquele Easy bruisability Cataracts, bilateral Anxiety Shingles Floaters Abnormal colonoscopy Lipoma of back Basal cell carcinoma (BCC) Dupuytren's contracture of both hands Dupuytren's contracture Recurrent sinusitis Urinary incontinence Hypothyroidism GERD (gastroesophageal reflux disease) Constipation Pain Arthritis Cough Sleep apnea Edema HTN (hypertension) Asthma Surgical History Status post epidural steroid injection (01/04/24) History of right cataract extraction Status post laparoscopic-assisted sigmoidectomy History of YAG laser iridotomy of both eyes History of lumbar fusion (11/2022) History of total right knee replacement (04/2021) History of incisional hernia repair Cataract extraction status of left eye Status post finger joint fusion Hx of repair of right rotator cuff Hx of rhinoplasty Hx of bilateral oophorectomy History of hysterectomy Hx of laparoscopy Hx of tonsillectomy Social History household members: none Smoking Status: Never smoker alcohol intake: current Discharge Assessment & Plan Assessment and Plan Assessment: Status post left knee total arthroplasty Plan of Treatment: 1) Discharge home. Plan on arranging with [facility] for at-home PT and OT services. 2) Patient has already been prescribed postoperative medications and instructed on their use. It was discussed with Dr. King that the patient may use aspirin instead of traditional NSAIDs for anti-inflammatory use. She may take no more than 12 tablets of 325 mg aspirin a day. She is also instructed not to take more than 3000mg of acetaminophen in a 24 hour period. 3) Follow[facility]up at [facility] [place] 2 weeks for wound check. Discharge Plan Discharge Plan Patient Disposition: Home Provider Discharge Comment: DC pending PT approval. Discharge orders & Medications Discharge Orders: Discharge (Order); Ordered 01/25/24 Ordered By: Reed Boyd Prescriptions: Continued losartan 50 mg Tablet 50 mg PO DAILY glycopyrrolate 1 mg Tablet 1 mg PO QAM albuterol sulfate 1.25 mg/3 mL Solution For Nebulization 1.25 mg INHALATION PRN PRN (Reason: SOB) montelukast 10 mg Tablet 10 mg PO QPM polyethylene glycol 3350 17 gram/dose Powder 1 tsp PO QPM PRN (Reason: Constipation) bupropion HCl 300 mg Tablet Extended Release 24 Hr 300 mg PO QAM dexlansoprazole [Dexilant] 30 mg Capsule,Biphase Delayed Releas 60 mg PO QAM levothyroxine 75 mcg Capsule 75 mcg PO BEDTIME lutein-zeaxanthin 25-5 mg Capsule 1 tab PO DAILY latanoprost 0.005 % Drops 1 drp EYE-BOTH BEDTIME potassium chloride 10 mEq Capsule, Extended Release 10 meq PO DAILY doxycycline hyclate 50 mg Capsule 50 mg PO DAILY acetaminophen 500 mg Tablet 1,000 mg PO BID-TID gabapentin 100 mg Capsule 100 mg PO BID loratadine 10 mg Tablet 10 mg PO QD-BID spironolactone 50 mg Tablet 50 mg PO QAM hydrochlorothiazide 12.5 mg Tablet 12.5 mg PO QAM Flonase Sensimist 27.5 mcg/actuation Porter,Suspension 1 spray INTRANASAL DAILY Rx Instructions: into each nostril fluticasone furoate-vilanterol [Breo Ellipta] 100-25 mcg/dose blister with device 1 ea INHALATION DAILY Discontinued aspirin 500 mg Tablet 500 mg PO TID Rx Instructions: while awake Follow up/Referrals: Prashanth Marcos MD [Primary Care Provider] - Elizabeth King MD [Physician] - 02/08/24 3:30 pm ([facility] office in [place]) Diet/Activity/Treatments Diet: Diet as Tolerated Activity: Walk frequently! Cold/Heat Therapy: Ice to knee as needed for pain. Skin/Wound/Dressing Care Report to your healthcare provider any signs of infection, such as:: chills, fever, night sweats, unusual drainage and unusual redness Dressing: May remove DENAE wrap and shower on 01/27/2024. Leave dressing in place until follow up in office. No bathing or otherwise soaking incision. Call the office if the dressing becomes saturated inside. Visit Report/Discharge Packet Instructions: DI for Knee Replacement Stand Alone Forms: Patient Portal/API, Surgery Discharge Discharge Data Primary Care Provider: Prashanth Marcos Attending Provider: Elizabeth King VTE Deep Vein Thrombosis/Pulmonary Embolism Present on Admission: No
[2024-01-25 08:18] VITALS: BP 143/83; PULSE 102; RESP 18; TEMP 37.3; O2SAT 93
--- NOTE | 2024-01-25 08:45 | PT.IIE ---
Current Diagnoses Unilateral primary osteoarthritis, left knee (01/24/24) Spondylolisthesis, lumbar region (01/24/24) Surgery Performed Operation Date: 01/24/24 10:45 Actual Procedures p Total Knee Arthroplasty - Robot(Left) - Elizabeth King MD Surgical History (Last Reviewed 01/24/24 @ 10:49 by Elizabeth King MD) Cataract extraction status of left eye History of hysterectomy History of incisional hernia repair History of lumbar fusion (11/2022) History of right cataract extraction History of total right knee replacement (04/2021) History of YAG laser iridotomy of both eyes Hx of bilateral oophorectomy Hx of laparoscopy Hx of repair of right rotator cuff Hx of rhinoplasty Hx of tonsillectomy Status post epidural steroid injection (01/04/24) Status post finger joint fusion Status post laparoscopic-assisted sigmoidectomy Medical History (Last Reviewed 01/24/24 @ 10:49 by Elizabeth King MD) Abnormal colonoscopy Anxiety Arthritis Asthma Basal cell carcinoma (BCC) Cataracts, bilateral Colon enlargement Constipation Cough Dupuytren's contracture Dupuytren's contracture of both hands Easy bruisability Eczema Eczema craquele Edema Floaters GERD (gastroesophageal reflux disease) Glaucoma History of bronchitis HTN (hypertension) Hypothyroidism Lipoma of back Osteopenia Pain Recurrent sinusitis Restless leg Shingles Sleep apnea Urinary incontinence Vagal nerve sensitivity Physical Therapy Inpatient Evaluation/Re-Eval M1 PT/OT-IP Prior Functional Status Start: 01/25/24 10:51 Freq: NEEDED Status: Discharge Protocol: Document 01/25/24 10:05 [facility] (Rec: 01/25/24 11:05 [facility] [id number]) Medical Review Prior Functional Status Communication Independent Mobility and Gait Pt states did not walk with a device prior. Activities of Daily Living and IADL's Pt states was I with all ADl and IADL needs. Prior Functional Level (Other details) Pt's friend to be staying with her to assist. Social History Household Members none Living Arrangements Apartment/Condo Number of Floors (Floors) One Floor Number of Stairs To Enter/Railing? NO steps to enter. Home Environment High Toilet,Walk in Shower Home Equipment Front Wheel Walker,Shower Seat with Backrest,Lift Recliner, Grab Bars In Shower M1 PT/OT-IP Prior Functional Status Start: 01/25/24 12:17 Freq: NEEDED Status: Active Protocol: Document 01/25/24 08:45 AB (Rec: 01/25/24 12:36 AB [id number]) Medical Review Prior Functional Status Medical History Reviewed Yes Communication able to make needs known Mobility and Gait pt stated that she was independent with all mobilities and ambulation without AD Activities of Daily Living and IADL's per OT note: Pt states was I with all ADl and IADL needs. Social History Household Members none Living Arrangements Apartment/Condo Number of Floors (Floors) One Floor Number of Stairs To Enter/Railing? no steps to enter Home Environment High Toilet,Walk in Shower, Built-In Shower Seat Home Equipment Front Wheel Walker,Hand Held Shower,Lift Recliner,Grab Bars In Shower Additional Social History Comment pt stated that her friend will stay with her for ~ 2 days to assist her but may still assist her afterwards if needed as friend only lives a few block away pt has hiking poles pt has an adjustable bed M2 PT-IP Current Condition Start: 01/25/24 12:17 Freq: NEEDED Status: Active Protocol: Document 01/25/24 08:45 AB (Rec: 01/25/24 12:36 AB [id number]) Physical Therapy Current Condition Current Condition Evaluation Date 01/25/24 Treatment Diagnosis s/p L TKA; difficulty in walking Onset Date 01/24/24 M3 PT-IP Subjective Start: 01/25/24 12:17 Freq: NEEDED Status: Active Protocol: Document 01/25/24 08:45 AB (Rec: 01/25/24 12:36 AB [id number]) Subjective Physical Therapy Visit Type Type Initial Evaluation Visit Start Time 08:45 Visit Stop Time 09:50 Number of INFRASTRUCTURE DEVELOPER Visits 0 Physical Therapy Visit Comments Patient Comments agreeable to do PT Therapy Pain Assessment Pain When Pain Assessed At Rest Pain Present Pain Present Pain Reported Location Left Knee Intensity 5 Scale Used Numeric (0 - 10) Pain Management Techniques Apply Cold,Distraction, Modification of Treatment,Re- positioning,Timing of Activity with Medications M4 PT-IP Mobility and Gait Start: 01/25/24 12:17 Freq: NEEDED Status: Active Protocol: Document 01/25/24 08:45 AB (Rec: 01/25/24 12:36 AB [id number]) PT-Bed Mobility Assessment Supine to Sit Supine to Sit Standby Assistance PT-Transfer Assessment Sit to and From Stand Sit to and from Stand Contact Guard Assistance,1 Person Assistance,Use of Upper Extremities Equipment Transfer Assistive Device Gait Belt,Front Wheeled Walker Orthotic/Prosthetic Devices or Brace: No Transfers Transfer Destination Chair Transfer Technique ambulated Transfer Ability Level of Assist Contact Guard Assistance, Minimal Assistance,1 Person Assistance,Use of Upper Extremities Comments Mobility Comments pt supine in bed and agreeable to do PT. obtained PLOF and home set up from pt. post-op folder provided and reviewed contents. educated on HEP. BP in supine: 144/63. pt completed supine to sit SBA. able to sit on EOB SBA. completed sit to stand min and ambulated in room using FWW ~ 30 ft to the chair CGA and cues for L quads contraction and stability. pt stated that she has to sit down because she is feeling faint. pt sat on EOB. BP checked: 142/83. position chair closer to pt. educated pt regarding sit<> stand techniques. pt completed sit to stand from EOB CGA and step transfer to chair using FWW CGA. educated pt on safety. pt's friend arrived. informed pt and friend regarding concern of activity tolerance affecting ability to be able to get into the house. pt and friend stated that lizz will be able to manage. educated pt and friend regarding having a chair ready for pt to sit on for rest breaks and both understood and agreed. caregiver training conducted. educated pt's friend on how to use safety belt and how to assist pt. pt's friend was able to put safety belt on . assist pt with sit to stand CGA and ambulation in room using FWW ~ 3 ft and pt again stated that she has to sit down due to feeling faint. positioned chair behind pt and pt sat down. BP checked: 139 /87. positioned pt on the chair. informed pt and friend regarding safety with d/c home and pt stated that she will just sit and rest if needed. call light and table placed within reach. informed nurse regarding pt's symptoms and affecting mobility tolerance. informed nurse that pt is only needing CGA and caregiver training was conducted and pt's symptoms are more of a medical issue and the doctor has to decide for pt's d/c plan and safety. Gait Assessment Gait Gait Assistance Required: Contact Guard Assist,1 Person Assist Distance (Feet) 30 Able to Maintain Weight Bearing Status Yes During Gait Assistive Devices Assistive Device Gait Belt,Front Wheeled Walker Orthotic/Prosthetic Devices or Brace: No Gait Deviations General Gait Pattern Antalgic,Decreased Stride Length,Step-to Gait Factors Limiting Gait Function Factors Limiting Gait Function Decreased Activity Tolerance, Decreased Strength,Difficulty Following Directions,Limited Range of Motion,Pain,Poor Balance,Poor Safety Awareness PT-Balance Assessment Sitting Balance and Reactions Static Sitting Balance Ability Normal Dynamic Sitting Balance Ability Good Standing Balance and Reactions Static Standing Balance Ability Fair Dynamic Standing Balance Ability Fair Device Used FWW M5 PT-IP Objective Assessments Start: 01/25/24 12:17 Freq: NEEDED Status: Active Protocol: Document 01/25/24 08:45 AB (Rec: 01/25/24 12:36 AB [id number]) Orientation Orientation/Cognition Level of Alertness Alert Orientation Name,Situation Language Function Ability No Deficits Noted Safety Awareness Decreased Safety Awareness Memory Description No Deficits Noted Gross Range of Motion Lower Extremity ROM Assessment Left Impaired Impairments L knee flexion: ~ 50 deg Strength Lower Extremity Strength Assessment Left Impaired Hip 3+/5 Knee 3+/5 Sensation Assessment Sensation Gross Sensation WNL Muscle Tone Muscle Tone WNL Yes M6 PT-IP Treatment Start: 01/25/24 12:17 Freq: NEEDED Status: Active Protocol: Document 01/25/24 08:45 AB (Rec: 01/25/24 12:36 AB [id number]) Physical Therapy Treatment Exercises Exercises Heel Slides Education Education Provided Precautions,Weight Bearing Status,Post-Op Packet,Safety M7 PT-IP Assessment and Plan Start: 01/25/24 12:17 Freq: NEEDED Status: Active Protocol: Document 01/25/24 08:45 AB (Rec: 01/25/24 12:36 AB [id number]) PT Summary Assessment and Plan Potential Rehabilitation Potential Fair Status of Condition at Evaluation Evolving Summary Impairments Pain,ROM,Strength,Balance, Coordination,Sensation,Tone, Cognition,Bed Mobility, Transfers,Gait,Activity Tolerance Assessment Summary pt is a 73 y/o F s/p L TKA POD 1. pt is WBAT on LLE. pt requiring CGA to min A with transfers and ambulation using FWW and caregiver training was conducted. pt's friend was able to assist pt. pt with c/o feeling faint during mobility needing to sit down but with stable BP. educated pt and friend regarding concerns due to symptoms and both understood and agreed on recommendations. informed nurse regarding pt's symptoms. pt also stated that she will [facility]. binder caser aware and will set up for pt. Goals Bed Mobility Goal Independent Transfer Goal Independent,Front Wheeled Walker Gait Goal Independent,Front Wheel Walker Gait Distance 200 Days to Meet Goals 5 Frequency of Treatment Frequency Of Treatment Twice a Day Treatment Plan Physical Therapy Treatment Plan Bed Mobility Training,Transfer Training,Gait Training, Therapeutic Exercise,Balance Retraining,Post Op Education, Discharge Planning,Hot or Cold Pack,Neuromuscular Re-ed, Coordination Retraining,Manual Therapy Weight Bearing Status Weight Bearing Status Weight Bear as Tolerated Allowed Weight Bearing Amount (enter % LLE WBAT or #) (%) Recommendations To Nursing Amount of Assist Needed 1 Person Assist Discharge Recommendations PT Discharge Recommendations Home with 13/06 Assist Available,Home Health Transportation Needs at Discharge Private Vehicle
[2024-01-25 08:57] VITALS: BP 143/83; PULSE 102
[2024-01-25] MEDS: hydroCHLOROthiazide 25 MG TABLET 12.5 MG PO (08:57)
[2024-01-25] MEDS: polyethylene glycoL 3350 17 GM POWD.PACK PO (08:57)
[2024-01-25] MEDS: buPROPion XL 150 MG TAB 300 MG PO (08:57)
[2024-01-25] MEDS: ASPIRIN EC 81 MG TABLET PO (08:57)
[2024-01-25] MEDS: POTASSIUM CHLORIDE 10 MEQ TAB PO (08:57)
[2024-01-25] MEDS: LOSARTAN 50 MG TABLET PO (08:57)
[2024-01-25] MEDS: DOCUSATE 100 MG CAPSULE PO (08:58)
[2024-01-25] MEDS: DOXYCYCLINE HYCLATE 100 MG TABLET 50 MG PO (08:58)
[2024-01-25] MEDS: LORATADINE 10 MG TABLET PO (08:58)
[2024-01-25] MEDS: GABAPENTIN 100 MG CAPSULE PO (08:58)
[2024-01-25] MEDS: SODIUM CHLORIDE 0.9% FLUSH 10 ML IV (08:59)
--- NOTE | 2024-01-25 09:40 | CM.DANOTE ---
Initial DCP Assessment Note Pt is a 73 yo female, resident of [place] now POD#1 from Left TKA by DR King PCP: Prashanth Marcos Payer: Nikhil MCDONALD Reviewed chart, met w/patient as she was just about to work with PT. Patient says she has been indp in all aspects at her baseline, plans to discharge with a friend to help her throughout her recovery. Patient requests [facility] initially then will follow up with outpatient PT. Pending Therapy will clear pt for return home w/family to assist; DC order from Ortho has already been initiated this morning. No barriers identified at this time to patient's safe discharge home w/family to assist; SAMMY Dasilva, kindly agreed to send referral to [facility] once F2F and HH order completed. CM team will plan to follow closely in case any DC needs or concerns arise. MAURICE Greene Discharge Planning/Care Management CM Discharge Assessment Start: 01/25/24 09:26 Freq: Status: Active Protocol: Document 01/25/24 09:26 FELICIANO (Rec: 01/25/24 09:40 [id number]) Discharge Planning Assessment Assigned Warehouse Specialist MAURICE Knight DPOA/Assigned Designee Name cindi Damon Contact Information [phone] Advance Directives? Yes: 2014 Advance Directives on File Yes History Provided By Patient,Medical Record Prior Living Arrangements Apartment/Condo Household Members none Type of transporation used prior to Drives own vehicle admit Independent with ADL's Yes: Poor activity tolerance related to pain Is patient alert and oriented? Yes Patient/Family Preference Home with Home Health Barriers to Discharge No Comment Home w/friend to assist and [facility] Discharge Plan Home Transportation Arrangement Friend or family Referrals Initiated Home Health Additional Comment [facility] Medicare Choice List Provided No SNF/HH Preference Patient wants [facility] Has Agency SNF been contacted Yes
--- NOTE | 2024-01-25 10:05 | OT.IP.EVAL ---
Current Diagnoses Unilateral primary osteoarthritis, left knee (01/24/24) Spondylolisthesis, lumbar region (01/24/24) Surgery Performed Operation Date: 01/24/24 10:45 Actual Procedures p Total Knee Arthroplasty - Robot(Left) - Elizabeth King MD Past Medical History (Last Reviewed 01/24/24 @ 10:49 by Elizabeth King MD) Abnormal colonoscopy Anxiety Arthritis Asthma Basal cell carcinoma (BCC) Cataracts, bilateral Colon enlargement Constipation Cough Dupuytren's contracture Dupuytren's contracture of both hands Easy bruisability Eczema Eczema craquele Edema Floaters GERD (gastroesophageal reflux disease) Glaucoma History of bronchitis HTN (hypertension) Hypothyroidism Lipoma of back Osteopenia Pain Recurrent sinusitis Restless leg Shingles Sleep apnea Urinary incontinence Vagal nerve sensitivity Surgical History (Last Reviewed 01/24/24 @ 10:49 by Elizabeth King MD) Cataract extraction status of left eye History of hysterectomy History of incisional hernia repair History of lumbar fusion (11/2022) History of right cataract extraction History of total right knee replacement (04/2021) History of YAG laser iridotomy of both eyes Hx of bilateral oophorectomy Hx of laparoscopy Hx of repair of right rotator cuff Hx of rhinoplasty Hx of tonsillectomy Status post epidural steroid injection (01/04/24) Status post finger joint fusion Status post laparoscopic-assisted sigmoidectomy Occupational Therapy Inpatient Evaluation/Re-Eval M1 PT/OT-IP Prior Functional Status Start: 01/25/24 10:51 Freq: NEEDED Status: Active Protocol: Document 01/25/24 10:05 [facility] (Rec: 01/25/24 11:05 [facility] [id number]) Medical Review Prior Functional Status Communication Independent Mobility and Gait Pt states did not walk with a device prior. Activities of Daily Living and IADL's Pt states was I with all ADl and IADL needs. Prior Functional Level (Other details) Pt's friend to be staying with her to assist. Social History Household Members none Living Arrangements Apartment/Condo Number of Floors (Floors) One Floor Number of Stairs To Enter/Railing? NO steps to enter. Home Environment High Toilet,Walk in Shower Home Equipment Front Wheel Walker,Shower Seat with Backrest,Lift Recliner, Grab Bars In Shower M2 OT-IP Current Condition Start: 01/25/24 10:51 Freq: Status: Active Protocol: Document 01/25/24 10:05 [facility] (Rec: 01/25/24 11:05 [facility] [id number]) Occupational Therapy Current Condition Current Condition Evaluation Date 01/25/24 Treatment Diagnosis S/P L TKA Diagnosis Onset Date 01/24/24 M3 OT- IP Subjective and Pain Start: 01/25/24 10:51 Freq: Status: Active Protocol: Document 01/25/24 10:05 [facility] (Rec: 01/25/24 11:05 [facility] [id number]) OT- Subjective Occupational Therapy Visit Type Type Initial Evaluation Visit Start Time 10:05 Visit Stop Time 10:35 Occupational Therapy Visit Comments Patient Comments Pt wanting to get dressed and use the bathroom. Pt's friend present for caregiver training . Patient/Caregiver Goals TO go home. OT Pain Assessment Pain When Pain Assessed At Rest Pain Present Pain Present Pain Reported Location Left Knee Intensity 5 M4 OT- IP ADL's Start: 01/25/24 10:51 Freq: Status: Active Protocol: Document 01/25/24 10:05 [facility] (Rec: 01/25/24 11:05 [facility] [id number]) OT QEJ-Gwoj-Wruioqr General Evaluation Self-Feeding Ability Independent OT ADL-Grooming Comments OT Grooming Comments Pt did prior. OT ADL-Oral Care Comments Oral Care Comments Not performed. OT ADL-Dressing General Eval Lower Body Dressing Ability Maximum Assistance Areas Needing Assistance Underpants/Brief,Pants/Shorts, Socks,Shoes Comments OT Dressing Comments At this time pt needing lots of assist for LB dressing needs. Pt would benefit from LB dressing equipment. Educated to dress her LLE first and take out last. Suggested addition tabs/rings to her velcro shoe for easier to use a fuel efficient automobile designer to assist to rachell/doff her shoes if needed. Pt states had a sock aid prior and states was not useful and not wanting to try a sock aid during eval. OT ADL-Toileting Comments OT Toileting Comments Educated pt to be mindful of her knee positioning while wiping and that is may be easier to stand and wipe and use of wet ones and assist if needed. Pt would benefit from a BSC or added grab bars by the toilet. Pt to wears pads as well. OT ADL-Bathing Comments OT Bathing Comments Not performed, pt's friend to assist. M5 OT- IP IADL's Start: 01/25/24 10:51 Freq: Status: Active Protocol: Document 01/25/24 10:05 [facility] (Rec: 01/25/24 11:05 [facility] [id number]) OT-Instrumental Activities of Daily Living Deficits IADL Deficits Identified Deficits Home Safety Awareness Awareness of Need for Assistance at Home Good Awareness Ability to Problem Solve Emergency Able to Problem Solve Situations Medication Management Medication Management No Deficits Identified Money Management Money Management No Deficits Identified Meal Preparation Meal Preparation Caregiver Provides Assist Rate Examiner Rate Examiner Caregiver Provides Assist M6 OT- IP Functional Cognition Start: 01/25/24 10:51 Freq: Status: Active Protocol: Document 01/25/24 10:05 [facility] (Rec: 01/25/24 11:05 [facility] [id number]) Cognitive Factors Limiting Selfcare Function Cognitive Ability Level of Alertness Alert Patient Orientation Name,Age,Birthday,Month,Date, Year,Day of Week,Place, Situation Attention Span Ability Capable of Focused Attention, Capable of Sustained Attention Ability to Follow Commands Able to Follow One Step Commands Cognitive Comments Cognitive Assessment Comments Pt able to follow directions for ADL and mobility needs. OT- Vision and Hearing OT- Hearing Assessment OT- Hearing Assessment WFL OT- Vision Assessment Visual Acuity Glasses All The Time Visual Attentiveness WFL Occular Pursuits WFL M7 OT- IP Mobility and Balance Start: 01/25/24 10:51 Freq: Status: Active Protocol: Document 01/25/24 10:05 [facility] (Rec: 01/25/24 11:05 [facility] [id number]) OT-Transfer Assessment Sit to and From Stand Sit to and from Stand Minimal Assistance,Moderate Assistance Transfers Transfer Ability Contact Guard Assistance Technique Transfer Destination Bed,Toilet Transfer Technique Stand Step Pivot Devices Transfer Assistive Devices Gait Belt,Front Wheeled Walker Comments Mobility Comments Pt needing MODA to stand from lower surfaces and once up CGA for balance at times. Pt's friend able to rachell/doff the gait belt and assist pt with the FWW safely. Pt states will be sleeping in her recliner. OT- Balance Assessment Sitting Balance and Reactions Static Sitting Balance Ability Good Dynamic Sitting Balance Ability Fair Standing Balance and Reactions Static Standing Balance Ability Fair Dynamic Standing Balance Ability Fair M8 OT- IP Objective Assessments Start: 03/06/24 10:51 Freq: Status: Active Protocol: Document 01/25/24 10:05 [facility] (Rec: 01/25/24 11:05 [facility] [id number]) OT Gross Range of Motion Upper Extremity Range of Motion ROM Impairments WFl for needs. OT Strength Comments Strength Comments WFL for needs. M9 OT- IP Assessment and Plan Start: 01/25/24 10:51 Freq: Status: Active Protocol: Document 01/25/24 10:05 [facility] (Rec: 01/25/24 11:05 [facility] [id number]) OT Summary Assessment and Plan Potential Rehabilitation Potential Excellent Analytic Complexity at Evaluation Low Summary OT Impairments Pain,Range of Motion,Strength, Balance,Functional Mobility, Dressing,Toileting,Bathing, Toilet Transfers,Shower Transfers,Activity Tolerance Progress Towards Goals Progressing Toward Goals Assessment Summary Pt low complexity and main barriers are pain, will now need assist for LB dressing, toileting , and bathing needs . Pt will benefit from LB dressing equipment and BSC at home. Pt to go home with her friend and have home health initially. Goals Self-Feeding Goal Independent Grooming Goal Independent Dressing Goal Independent,Long Handled Shoe Horn,Flow Coordinator,Sock Aid Toileting Goal Independent Bathing Goal Independent Toilet Transfer Goal Independent Shower Transfer Goal Independent Days to Meet Goals 10 Frequency of Treatment Frequency Of Treatment Once a Day Treatment Plan OT Treatment Plan ADL Training,Functional Mobility,Patient/Family Education,Discharge Planning Discharge Recommendations OT Discharge Recommendations Home with 13/06 Assist Available,Home Health Home Equipment Needs BSC, LB dressing equipment, grab bars for toilet
== END 2024-01-25 11:10 | disposition home or self-care (01) ==
LOC: OR 08:20 → AC 08:30
PROVIDERS: PCP Family Medicine; Referring Provider Orthopaedic Surgery; Visit Provider Orthopaedic Surgery
PROC: 0SRD0JZ Replacement of Left Knee Joint with Synthetic Substitute, Open Approach (ICD-10-PCS; CPT 27447; principal; 2024-01-24 10:45)
DX: M17.12 Unilateral primary osteoarthritis, left knee (principal); G89.18 Other acute postprocedural pain
CPT/HCPCS: 27447; 36415; 64450; 73560; 85014; 85018; 97162; 97165; 97530; 97535; C1776; C9290; J0171; J0690; J1170; J2405; J2704; J3010; J3410

== ENCOUNTER 2024-03-12 11:54 | Emergency (ER) | payer MEDICARE, SELFPAY ==
[2024-01-24 14:51] VITALS: BMI 35.2
[2024-03-12 12:35] VITALS: BP 143/78; PULSE 82; RESP 16; TEMP 36.7; O2SAT 95; BMI 32.1
--- NOTE | 2024-03-12 12:44 | DI.US.S_ITS ---
PROCEDURE: US PERIPH VENOUS LOW EXTREM LT INDICATIONS: swelling pain/recent surgery TECHNIQUE: Real-time imaging, as well as color and pulse Doppler interrogation, were performed of the lower extremity deep veins from the inguinal ligament to the popliteal fossa, with documentation of the visualized calf veins. COMPARISON: None. FINDINGS: The common femoral, femoral, popliteal, and the visualized calf veins are normally compressible, and free of intraluminal thrombus. Color and pulse Doppler demonstrate normal phasic intraluminal flow. There is normal augmentation response to distal compression maneuver. Subcutaneous edema is noted. IMPRESSION: No findings of lower extremity deep venous thrombosis. Dictated by: Jose F Deal M.D. on 03/12/2024 at 14:58 Approved by: Jose F Deal M.D. on 03/12/2024 at 14:59
--- NOTE | 2024-03-12 15:17 | ED.EXTPRO ---
HPI - Extremity Problem <Kevin Mckee PA-C - Last Filed: 03/12/24 16:00> General Chief complaint: Extremity Problem,Nontraumatic Stated complaint: sent by PCP for possible DVT left leg Time Seen by Provider: 03/12/24 13:09 Source: patient Mode of arrival: Ambulatory History of Present Illness HPI Narrative: 73-year-old female who is status post a left knee replacement on 01/24/2024 presents to the ED with about 10 days of right lower leg redness, swelling, pain. Patient was seen at her ortho specialist Dr. Chapman's office by the chest painting and sealing supervisor Dr. Hawley and sent to the ED to rule out a DVT. Patient denies numbness, tingling, weakness, fever, chills, nausea, vomiting, chest pain, shortness of breath. Patient is able to range her knee and walk on it. Related Data Home Medications Medication Instructions Recorded Confirmed albuterol sulfate 1.25 mg/3 mL 1.25 mg inhalation PRN PRN SOB 05/23/18 12/12/23 solution for nebulization bupropion HCl 300 mg 24 hr tablet, 300 mg PO QAM 05/23/18 01/24/24 extended release dexlansoprazole 30 mg 60 mg PO QAM 05/23/18 01/24/24 capsule,biphase delayed release (Dexilant) glycopyrrolate 1 mg tablet 1 mg PO QAM 05/23/18 12/12/23 levothyroxine 75 mcg capsule 75 mcg PO BEDTIME 05/23/18 12/12/23 losartan 50 mg tablet 50 mg PO DAILY 05/23/18 01/24/24 lutein 25 mg-zeaxanthin 5 mg 1 tab PO DAILY 05/23/18 12/12/23 capsule montelukast 10 mg tablet 10 mg PO QPM 05/23/18 01/24/24 polyethylene glycol 3350 17 1 tsp PO QPM PRN Constipation 05/23/18 12/12/23 gram/dose oral powder acetaminophen 500 mg tablet 1,000 mg PO BID-TID 12/12/23 01/24/24 doxycycline hyclate 50 mg capsule 50 mg PO DAILY Adult acne 12/12/23 01/24/24 fluticasone furoate 27.5 1 spray intranasal DAILY 12/12/23 01/24/24 mcg/actuation nasal spray,suspension (Flonase Sensimist) gabapentin 100 mg capsule 100 mg PO BID 12/12/23 12/12/23 hydrochlorothiazide 12.5 mg tablet 12.5 mg PO QAM 12/12/23 01/24/24 latanoprost 0.005 % eye drops 1 drp EYE-BOTH BEDTIME 12/12/23 01/24/24 loratadine 10 mg tablet 10 mg PO QD-BID 12/12/23 12/12/23 potassium chloride 10 mEq 10 meq PO DAILY 12/12/23 12/12/23 capsule,extended release spironolactone 50 mg tablet 50 mg PO QAM Adult acne 12/12/23 01/24/24 fluticasone furoate 100 1 ea inhalation DAILY 01/24/24 01/24/24 mcg-vilanterol 25 mcg/dose inhalation powder (Breo Ellipta) Previous Rx's Medication Instructions Recorded clindamycin HCl 150 mg capsule 450 mg (3 x 150 mg) PO TID 5 days 03/12/24 #45 caps Allergies Allergy/AdvReac Type Severity Reaction Status Date / Time iodine [IODINE] Allergy Severe HIVES Verified 03/12/24 12:39 morphine [MORPHINE] Allergy Intermediate Hives Verified 03/12/24 12:39 ibuprofen AdvReac Severe Nightmare Verified 03/12/24 12:39 Penicillins [PENICILLINS] AdvReac Severe FAINT Verified 03/12/24 12:39 levofloxacin [LEVOFLOXACIN] AdvReac Intermediate Pains and Verified 03/12/24 12:39 nausea Sulfa (Sulfonamide AdvReac Unknown Topical=dutton, Verified 03/12/24 12:39 Antibiotics) Pill=nausea [SULFA (SULFONAMIDE ANTIBIOTICS)] Review of Systems <Kevin Mckee PA-C - Last Filed: 03/12/24 16:00> Constitutional Constitutional: Denies chills, Denies fatigue, Denies fever(s), Denies frequent falls, Denies lethargy and Denies weakness Eyes Eyes: Denies change in vision, Denies eye discharge, Denies irritation and Denies loss of vision ENT Ears, Nose, Mouth, and Throat: Denies change in voice, Denies dizziness, Denies neck pain, Denies sore throat and Denies throat swelling Cardiovascular Cardiovascular: Denies chest pain, Denies irregular heart rhythm, Denies lightheadedness, Denies palpitations, Denies dyspnea, Denies dyspnea on exertion and Denies orthopnea Respiratory Respiratory: Denies cough, Denies dyspnea, Denies dyspnea on exertion and Denies wheezing Gastrointestinal Gastrointestinal: Denies abdominal pain, Denies change in bowel habits, Denies diarrhea, Denies nausea and Denies vomiting Musculoskeletal Musculoskeletal: Denies neck pain and Denies numbness Comments: Left lower leg swelling, erythema, pain Integumentary/Breasts Skin/Breast: Denies pruritus, Reports erythema, Denies rash and Denies wounds Neurologic Neurologic: Denies behavioral changes, Denies confusion, Denies dizziness, Denies frequent falls, Denies loss of vision, Denies numbness and Denies weakness Psychiatric Psychiatric: Denies anxiety, Denies behavioral changes, Denies confusion, Denies depression, Denies homicidal ideation and Denies suicidal ideation Endocrine Endocrine: Denies fatigue, Denies flushing and Denies palpitations Hematologic/Lymphatic Hematologic/Lymphatic: Denies easy bruising Allergic/Immunologic Allergic/Immunologic: Denies urticaria, Denies throat swelling and Denies wheezing Patient History <Kevin Mckee PA-C - Last Filed: 03/12/24 16:00> Medical History Eczema History of bronchitis Restless leg Vagal nerve sensitivity Osteopenia Glaucoma Colon enlargement Eczema craquele Easy bruisability Cataracts, bilateral Anxiety Shingles Floaters Abnormal colonoscopy Lipoma of back Basal cell carcinoma (BCC) Dupuytren's contracture of both hands Dupuytren's contracture Recurrent sinusitis Urinary incontinence Hypothyroidism GERD (gastroesophageal reflux disease) Constipation Pain Arthritis Cough Sleep apnea Edema HTN (hypertension) Asthma Surgical History Status post epidural steroid injection (01/04/24) History of right cataract extraction Status post laparoscopic-assisted sigmoidectomy History of YAG laser iridotomy of both eyes History of lumbar fusion (11/2022) History of total right knee replacement (04/2021) History of incisional hernia repair Cataract extraction status of left eye Status post finger joint fusion Hx of repair of right rotator cuff Hx of rhinoplasty Hx of bilateral oophorectomy History of hysterectomy Hx of laparoscopy Hx of tonsillectomy Social History household members: none Smoking Status: Never smoker alcohol intake: current Smoking Status: Never smoker alcohol intake frequency: holidays/special occasions only Substance Use Type: does not use Exam <Kevin Mckee PA-C - Last Filed: 03/12/24 16:00> Narrative Exam Narrative: Const General:?cooperative, healthy appearing and comfortable HENAK Head:?normal to inspection Ears:?hearing grossly normal bilaterally Nose:?external nose normal Face and sinus:?normal facial exam and sinuses nontender Mouth:?oral mucosae normal Throat:?posterior oropharynx normal Eyes General:?appearance normal, both eyes and all related structures Neck Neck:?normal visual inspection and no lymphadenopathy noted Resp Effort & Inspection:?normal respiratory effort Auscultation:?clear to auscultation bilaterally Cardio Rate:?regular rate Rhythm:?regular rhythm Musculoskeletal/integumentary Left lower leg appears erythematous, swollen. Incision from the left knee replacement appears to have healed well. No discharge. Strength and sensation is intact. There is full range of motion. Patient is neurovascularly intact. Compartments are soft. Knee is ranging well. Gait normal. Neuro General:?patient alert, patient awake and patient oriented x3 Initial Vital Signs Initial Vital Signs: Vital Signs Temperature 98.0 F 03/12/24 12:35 Pulse Rate 82 03/12/24 12:35 Respiratory Rate 16 03/12/24 12:35 Blood Pressure 143/78 H 03/12/24 12:35 Pulse Oximetry 95 03/12/24 12:35 Oxygen Delivery Method Room Air 03/12/24 12:35 <Yanelis Cardenas MD - Last Filed: 03/13/24 08:49> Initial Vital Signs Initial Vital Signs: Vital Signs Temperature 98.0 F 03/12/24 12:35 Pulse Rate 82 03/12/24 12:35 Respiratory Rate 16 03/12/24 12:35 Blood Pressure 143/78 H 03/12/24 12:35 Pulse Oximetry 95 03/12/24 12:35 Oxygen Delivery Method Room Air 03/12/24 12:35 Course <Kevin Mckee PA-C - Last Filed: 03/12/24 16:00> Orders Ordered: ED Orders 03/12/24 12:44 US periph venous low extrem lt Stat Vital Signs Vital signs: Vital Signs - 8 hr 03/12/24 12:35 Temperature 98.0 F Pulse Rate 82 Respiratory Rate 16 Blood Pressure 143/78 H Pulse Oximetry 95 Oxygen Delivery Method Room Air <Yanelis Cardenas MD - Last Filed: 03/13/24 08:49> Orders Ordered: ED Orders 03/12/24 12:44 US periph venous low extrem lt Stat Vital Signs Vital signs: Vital Signs - 8 hr 03/12/24 12:35 Temperature 98.0 F Pulse Rate 82 Respiratory Rate 16 Blood Pressure 143/78 H Pulse Oximetry 95 Oxygen Delivery Method Room Air MDM - Extremity (Nontraumatic) <Kevin Mckee PA-C - Last Filed: 03/12/24 16:00> MDM Narrative Medical decision making narrative: 73-year-old female who is status post a left knee replacement on 01/24/2024 presents to the ED with about 10 days of right lower leg redness, swelling, pain. DVT study was negative for blood clots, some subcutaneous edema was noted. Patient's presentation most consistent with cellulitis. Spoke with LOC Boyd from Dr. King's office, and he is in agreement with starting patient on clindamycin, given patient's multiple allergies to other antibiotics. LOC Boyd will see patient later this week for follow-up. Discussed findings and plan with patient. ED return precautions were discussed with patient. Patient verbalized understanding. Medical records reviewed: Yes Discharge Plan Departure Patient Disposition: Home Clinical Impression: Cellulitis Qualifiers: Site of cellulitis: extremity Site of cellulitis of extremity: lower extremity Laterality: left Qualified Code(s): L03.116 - Cellulitis of left lower limb Instructions: DI for Cellulitis -- Adult Activity Restrictions/Additional Instructions: You were evaluated in the ED today for left leg swelling, redness. The ultrasound of the leg did not show any DVTs/blood clots. Your symptoms are most consistent with a skin infection called cellulitis for which you are being prescribed antibiotics. LOC Boyd from Dr. Chapman's office was consulted and he will be following up with you later this week. Please take the antibiotics as prescribed. Return to the ED if you have worsening symptoms, numbness, tingling, weakness, chest pain, shortness of breath. Prescriptions: New clindamycin HCl 150 mg capsule 450 mg PO TID 5 Days Qty: 45 0RF No Action losartan 50 mg Tablet 50 mg PO DAILY glycopyrrolate 1 mg Tablet 1 mg PO QAM albuterol sulfate 1.25 mg/3 mL Solution For Nebulization 1.25 mg INHALATION PRN PRN (Reason: SOB) montelukast 10 mg Tablet 10 mg PO QPM polyethylene glycol 3350 17 gram/dose Powder 1 tsp PO QPM PRN (Reason: Constipation) bupropion HCl 300 mg Tablet Extended Release 24 Hr 300 mg PO QAM dexlansoprazole [Dexilant] 30 mg Capsule,Biphase Delayed Releas 60 mg PO QAM levothyroxine 75 mcg Capsule 75 mcg PO BEDTIME lutein-zeaxanthin 25-5 mg Capsule 1 tab PO DAILY latanoprost 0.005 % Drops 1 drp EYE-BOTH BEDTIME potassium chloride 10 mEq Capsule, Extended Release 10 meq PO DAILY doxycycline hyclate 50 mg Capsule 50 mg PO DAILY acetaminophen 500 mg Tablet 1,000 mg PO BID-TID gabapentin 100 mg Capsule 100 mg PO BID loratadine 10 mg Tablet 10 mg PO QD-BID spironolactone 50 mg Tablet 50 mg PO QAM hydrochlorothiazide 12.5 mg Tablet 12.5 mg PO QAM Flonase Sensimist 27.5 mcg/actuation [place],Suspension 1 spray INTRANASAL DAILY Rx Instructions: into each nostril fluticasone furoate-vilanterol [Breo Ellipta] 100-25 mcg/dose blister with device 1 ea INHALATION DAILY Referrals: Prashanth Marcos MD [Primary Care Provider] - Stand Alone Forms: Patient Portal/API ED Sign-out <Yanelis Cardenas MD - Last Filed: 03/13/24 08:49> Cosign ED Attending Cosignature Attestation: I was immediately available in the department for consultation throughout this patient's visit. Yanelis Cardenas MD
[2024-03-12 16:01] VITALS: BP 140/77; PULSE 86; RESP 18; O2SAT 98
--- NOTE | 2024-03-12 17:26 | PC.NURSE ---
Spoke with Dr. King after patient's discharge. She had called and spoken with our provider and requested lab work be done. upon discussion with Dr. King about this, patient has already been discharged from our care, she would need to order out patient labs. She states she is unable to do this, she had the patient go to us for an ultrasound since she was unable to order that as well. she now requests that we order outpatient labs attached to our ER visit on her behalf. spoke with our lab about how this could be done. outpatient lab is now closed and this would populate a new visit number if patient came in tomorrow for labs. most likely this would not be covered by insurance since it would be attached to an ED visit. physical copy of a lab requisition from the ordering MD could be made and drawn upon her request. escalating situation to charge nurse for further follow up.
== END 2024-03-12 16:04 | disposition home or self-care (01) ==
PROVIDERS: Emergency Provider Student in an Organized Health Care Education/Training Program; PCP Family Medicine
DX: L03.116 Cellulitis of left lower limb (principal)
CPT/HCPCS: 93971; 99281; 99283